=== PATIENT | female | born 1940 | race Caucasian/White ===

== ENCOUNTER 2024-10-25 14:49 | Outpatient (REF) | payer MEDICARE, MEDICAID, SELFPAY ==
--- NOTE | 2024-10-25 16:57 | MHC.AU.MED ---
Medical Clearance for Hearing Instrumentation Date: 10/25/24 Patient Name: Elinor Reynoso Date of : 1940 Primary Care Provider: Elinor Brooks MD We have seen your patient on 10/25/24 and have determined that they are a candidate for amplification (See accompanying report). Specifically, they would benefit from: Hearing aid use in both ears There is a statute that addresses Medical Evaluation Requirements prior to fitting a patient with a hearing aid. According to [place] statute 265 CMR:6.03(1), (a) General. Except as provided in 265 CMR 6.03(1)(b), a unemployment insurance hearing officer shall not sell a hearing aid unless the prospective user has presented to the unemployment insurance hearing officer a written statement signed by a licensed physician that states that the patient's hearing loss has been medically evaluated and the patient may be considered a candidate for a hearing aid. The medical evaluation must have taken place within the preceding six months. Please note: Due to the [place] Statute referenced above, we cannot accept a signature other than that of a licensed physician. BALL WARPER TENDER and PA signatures cannot be accepted. I am in agreement with the above recommendation. There is no medical contraindication for hearing instrumentation. Physician Signature Date Physician Name (Printed)
--- NOTE | 2024-10-30 08:52 | MHC.AU.HA1 ---
Hearing Aid Evaluation Date of Visit: 10/25/24 Historical Information: Description of Hearing: Mild sloping to severe sensorineural hearing loss, bilaterally Current personal amplification information: Phonak Audeo Y25-Islzna fit in October 2017 Summary: Accompanied by daughter, Carmen, who interpreted in Icelandic. Has not worn HAs in a long time, reportedly constantly fell off ears and never fully acclimated to sound quality. Elinor not convinced she needs HAs, noting she only struggles to hear some times. However, daughter reported significant communication difficulties. Elinor initially interested in custom HAs but ultimately opted to trial rechargeable RITEs. Will start with dome but discussed possibility of adding custom EM, if needed. Hearing Aid Prescription: Based on the individual?s shared listening needs, communication environments, dexterity, desire for connectivity, and personal preferences, the following prescription for amplification has been made: Right ear: Make, Model, Color: Phonak Audeo I50-R Color: Silver Stephens Battery Size: Rechargeable Mold Carpenter/Slim Tube: 1M Type of Earmold/Dome/CShell/SlimTip: Small power dome Left ear: Left ear prescription to be same as Right Hearing Aid above: Make, Model, Color: Phonak Audeo I50-R Color: Silver Stephens Battery Size: Rechargeable Mold Carpenter/Slim Tube: 1M Type of Earmold/Dome/CShell/SlimTip: Small power dome Accessories/Assistive Technology: Lithographic Retoucher Apprentice Plan of Care: Patient wishes to purchase hearing aids as prescribed Action Taken/Action Needed: Medical Clearance to be requested from PCP/ENT. Hearing Instrument Fitting to be scheduled when materials arrive Primary Diagnosis: H90.3 Bilateral Sensorineural Hearing Loss Signature: Provider: Khloe Martines, [facility]
== END 2024-10-25 14:50 | disposition home or self-care (01) ==
LOC: HO.SH 14:49
PROVIDERS: Visit Provider Internal Medicine
DX: Z01.118 Encounter for examination of ears and hearing with other abnormal findings (principal); Z46.1 Encounter for fitting and adjustment of hearing aid; H90.3 Sensorineural hearing loss, bilateral
CPT/HCPCS: 92557; 92591

== ENCOUNTER 2024-11-16 14:01 | Outpatient (REF) | payer MEDICARE, MEDICAID, SELFPAY | END 2024-11-16 14:02 | disposition home or self-care (01) | LOC: HO.HMGCX 14:01 | PROVIDERS: PCP General Practice; Visit Provider General Practice | DX: N83.202 Unspecified ovarian cyst, left side (principal) | CPT/HCPCS: 76830; 76856 ==

== ENCOUNTER → 2024-11-16 14:02 | Outpatient (BNV) | payer MEDICARE, MEDICAID, SELFPAY | PROVIDERS: PCP General Practice; Visit Provider Radiology Diagnostic Radiology | DX: N83.202 Unspecified ovarian cyst, left side (principal) | CPT/HCPCS: 76830; 76856 ==

== ENCOUNTER 2024-11-29 14:44 | Outpatient (REF) | payer MEDICARE, MEDICAID, SELFPAY ==
--- OUTSIDE RECORDS SUMMARY | 2024-11-29 15:51 | XMS_ITS | Clinical Summary ---
Author Organization [employer] Address [address] [facility] [address] [place] [address] Care Team Providers Care Blueprint Assembler Name Role Phone Mabel Black MD Primary Care Provider Allergies Active Allergy Reactions Criticality Noted Date Comments Penicillin G Unknown 10/04/2024 Medications alendronate (Fosamax) 70 MG tabletIndications:A ge-related osteoporosis without current pathological fracture Take 1 tablet (70 mg) by mouth every 7 (seven) days. Take in the morning with a full glass of water, on an empty stomach, and do not take anything else by mouth or lie down for the next 30 min. 12 tablet 3 4 10/04/20 25 Active rosuvastatin (Crestor) 20 MG tabletIndications:M ixed hyperlipidemia Take 1 tablet (20 mg) by mouth Once per day. 90 tablet 3 4 10/04/20 25 Active valsartan (Diovan) 320 MG tabletIndications:P rimary hypertension Take 1 tablet (320 mg) by mouth Once per day. 90 tablet 3 4 10/04/20 25 Active amLODIPine (Norvasc) 5 MG tabletIndications:P rimary hypertension Take 1 tablet (5 mg) by mouth Once per day. 90 tablet 3 4 10/04/20 25 Active levothyroxine (Synthroid) 50 MCG tabletIndications:A cquired hypothyroidism Take 1 tablet (50 mcg) by mouth before breakfast. 90 tablet 3 4 10/04/20 25 Active aspirin 81 MG chewable tabletIndications:P rimary hypertension Chew 1 tablet (81 mg) Once per day. 90 tablet 3 4 10/04/20 25 Active Blood Pressure Monitoring (Blood Pressure Cuff) [facility] 1 each Once per day. 1 each Active Active Problems Problem Noted Date Diagnosed Date Dystrophic nail 11/19/2024 Assessment & Plan (11/19/2024 8:40 AM EST): Refer to podiatry Imbalance 10/12/2024 Assessment & Plan (10/12/2024 1:34 PM EST): Drink plenty of fluids and rest Do not do sudden movements, change positions gradually Meclizine PRN Decreased hearing of both ears 10/12/2024 Neck pain 10/12/2024 Primary hypertension 10/04/2024 Assessment & Plan (11/19/2024 8:41 AM EST): Maintenance: Amlodipine 5mg, Valsartan 320mg NOT at goal today, BP cuff ordered to [facility], to check daily ad f/u with nurse visit in 4 weeks, me in 4 months IF BP not at goal <140/90, increase Amlodipine to 10mg BMP: No results found for: CREATININE Lipid Panel: DUE ASCVD Risk: Calculate pending updated labs EKG: Obtain baseline at f/u - Aerobic exercise to reduce BP. Initial goal of 30 min walk 3-5x/week. Increase as tolerated. - low-sodium diet (goal: <2g/day) and heart healthy diet such as DASH to reduce BP and prevent ASCVD. - Home BP monitoring 1-2 x day with goal of <140/90. - Seek immediate medical attention for chest pain, palpitations, SOB, syncope, or sudden changes in mental status. 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 f ailure with decreased ejection fraction 10/04/2024 Left ovarian cyst 10/04/2024 Encounters Date Type Department Care Team Description 11/14/2024 3:15 PM EST Office Visit [address] [address] Mabel Black MD Primary hypertension (Primary Dx); Mixed hyperlipidemia; Lymphoma of right inguinal region (CMS/HCC); ACC/AHA stage C left heart failure with decreased ejection fraction (CMS/HCC); Acquired hypothyroidism; Left ovarian cyst; Age-related osteoporosis without current pathological fracture; Malignant neoplasm of right female breast, unspecified estrogen receptor status, unspecified site of breast (CMS/HCC); Decreased hearing of both ears; Imbalance; Dystrophic nail 11/14/2024 Travel 11/08/[address] [address] Swati Armenta [place] Referral 11/07/2024 Orders Only [address] [address] Mabel Black MD Left ovarian cyst (Primary Dx) 10/15/[address] [address] Mabel Black MD 10/12/2024 1:00 PM EST Office Visit [facility] [address] [place] [phone] Elinor Montero MD Imbalance (Primary Dx); Decreased hearing of both ears; Neck pain; Other computer terminal operator (current) drug therapy; Weakness 10/12/2024 Telephone [facility] [address] [place] [phone] Betzaida Bell RN Nurse Triage (/ ) 10/12/[address] [address] Mabel Black MD Nurse Triage 10/04/[address] [address] Mabel Black MD telephone call 10/02/2024 9:45 AM EST Office Visit [address] [address] Mabel Black MD Primary hypertension (Primary Dx); Mixed hyperlipidemia; Acquired hypothyroidism; Lymphoma of right inguinal region (CMS/HCC); Malignant neoplasm of right female breast, unspecified estrogen receptor status, unspecified site of breast (CMS/HCC); Age-related osteoporosis without current pathological fracture; Diverticulitis of both small and large intestine without perforation or abscess without bleeding; Nonexudative age-related macular degeneration, unspecified laterality, unspecified stage; ACC/AHA stage C left heart failure with decreased ejection fraction (CMS/HCC); Left ovarian cyst 10/02/2024 Travel 09/21/2024 Patient Outreach [facility] [address] [place], [place] [phone] Mabel Black MD Pre-visit Planning ((Unable to complete PVP screening will complete in office) 09/11/2024 Telephone [facility] [address] [place] [address] Mabel Black MD Appointment Request from Last 3 Months Immunizations Name Administration Dates Next Due Influenza injectable quadrivalent preservative f ree 07/29/2017 Influenza, High Dose Seasonal, Preservative Free 08/17/2024 Social History Tobacco Use Types Packs/Day Years Used Date Smoking Tobacco: Never Smokeless Tobacco: Never Tobacco Cessation:Counseling Given: Not Answered Alcohol Use Standard Drinks/Week Comments Not Currently 0 (1 standard drink = 0.6 oz pur e alcohol) Alcohol Answer Date Recorded How often do you have a drink containing alcohol ? 0 11/19/2024 How many drinks containing a lcohol do you have on a typical day when you are drinking? 0 11/19/2024 How often do you have six or more drinks on one occasion? 0 11/19/2024 Housing Stability Answer Date Recorded What is your housing situation today? I have cheryl das 10/02/[address] you li ve. Do you have problems with any of the following? None of the above 10/02/2024 Food Insecurity Answer Date Recorded Within the past 12 months, y ou worried that your food would run out before you got money to buy more: Never True 10/02/2024 Within the past 12 months,th e food you bought just didn't last and you didn't have enough money to get more: Never True Transportation Answer Date Recorded In the past 12 months, has l ack of transportation kept you from medical appts, meetings, work or from getting things needed for daily living? No 10/02/2024 Intimate Partner Violence Answer Date R ecorded Within the last year, have y ou been afraid of your partner or ex-partner? 2 11/19/2024 Within the last year, have y ou been humiliated or emotionally abused in other ways by your partner or ex-partner? 2 Within the last year, have y ou been kicked, hit, slapped, or otherwise physically hurt by your partner or ex-partner? 2 11/19/2024 Within the last year, have y ou been raped or forced to have any kind of sexual activity by your partner or ex-partner? 2 11/19/2024 Utilities Answer Date Recorded In the past 12 months, has t he [employer], gas, oil or water company threatened to shut off services in your home? No 10/02/2024 Depression Answer Date Recorded Patient Health Questionnaire-2 Score 0 10/02/2024 Internet Access Answer Date Recorded Internet Access Q1 Yes 10/02/2024 Internet Access Q2 Not on file 10/02/2024 Comments Unknown Sex and Gender Information Value Date Recorded Sex Assigned at Female 08/09/2022 10:32 AM EDT Legal Sex Female 10:32 AM EDT Gender Identity Female 09/25/2024 1:37 PM EST Sexual Orientation Don't know 09/25/2024 1: 38 PM EST Last Filed Vital Signs Vital Sign Reading Time Taken Comments Blood Pressure 157/68 11/14/2024 3:34 PM EST Pulse 72 11/14/2024 3:34 PM EST Temperature 36.5 ??C (97.7 ??F) 11/14/2024 3:34 PM ES T Respiratory Rate 15 11/14/2024 3:34 PM EST Oxygen Saturation 100% 10/12/2024 11:50 AM EST Inhaled Oxygen Concentration - - Weight 51.9 kg (114 lb 6.4 oz) 11/14/2024 3:34 P M EST Height 147.3 cm (4' 10 ) 11/14/2024 3:34 PM EST Body Mass Index 23.91 11/14/2024 3:34 PM EST Plan of Treatment Health Maintenance Due Date Last Done Comments Lipid Panel 1940 COVID-19 Vaccine (#1) 01/18/1945 DTaP/Tdap/Td Vaccines (1 - Tdap) 01/18/1959 Pneumococcal Vaccine: 50+ Years (1 of 2 - PCV) 01/18/1959 Zoster Vaccines (1 of 2) 01/18/1959 RSV Patients and Patients Aged 60 years or older (1 - 1-dose 75+ series) 01/18/2015 Depression Screening 10/02/2025 10/02/2024, 10/02/2024 SDOH Screening 10/02/2025 10/02/2024 Diabetes: Hemoglobin A1C 10/12/2025 10/12/2024 Tobacco Screening 11/14/2025 11/14/2024 Alcohol/Substance Use Screening 11/19/2025 11/19/2024 Influenza Vaccine Completed 08/17/2024, 07/29/2017 HIB Vaccines Aged Out No longer eligi ble based on patient's age to complete this topic HPV Vaccines Aged Out No longer eligi ble based on patient's age to complete this topic Hepatitis A Vaccines Aged Out No long er eligible based on patient's age to complete this topic Hepatitis B Vaccines Aged Out No long er eligible based on patient's age to complete this topic IPV Vaccines Aged Out No longer eligi ble based on patient's age to complete this topic Meningococcal Vaccine Aged Out No ricky vitaly eligible based on patient's age to complete this topic RSV under 20 months Aged Out No longe r eligible based on patient's age to complete this topic Rotavirus Vaccines Aged Out No longer eligible based on patient's age to complete this topic Procedures Procedure Name Priority Date/Time Associated Diagnosis Comments US PELVIS TRANSVAGINAL Routine 11/16/2024 2:10 PM EST Left ovarian cyst ECG 12-LEAD Routine 10/25/2024 10:06 AM EST Imbalance Weakness ECG 12-LEAD Routine 10/25/2024 10:06 AM EST Imbalance POCT GLUCOSE Routine 10/12/2024 1:33 PM EST Imbalance Weakness POCT GLYCATED HEMOGLOBIN, TOTAL Routine 10/12/2024 1:33 PM EST Imbalance 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 [facility] ?[address] [facility] . ? [place] [address] ? Ultrasound Report ? Signed ? Patient: Elinor Reynoso ?MR#: [id number] ?? 9 ? : 1940 ?Acct:[id number] ? Age/Sex: 84 / F ?ADM Date: 11/16/24 ? Loc: HO.[facility]X ? Attending Dr: Mabel Black MD ? Ordering Physician: Mabel Black ?? Date of Service: 11/16/24 ?? Procedure(s): US pelvic and transvaginal ?? Accession Number(s): [id number] ? cc: Mabel Black ? EXAMINATION: ??US PELVIS TRANSABDOMINAL AND TRANSVAGINAL ? HISTORY: pelvic pain ? COMPARISON: Correlation is made with a CT of the pelvis dated 718. ? TECHNIQUE: ? Transabdominal and endovaginal real-time 2D lee-scale ultrasound was ?? performed. ? FINDINGS: ? Uterus: The patient is status post hysterectomy. ? Right ovary: ??The right ovary is surgically absent. ? Left ovary: ?? The left ovary measures 3.0 x 2.3 x 2.7 cm. ??There is a ?? 2.6 x 2.0 x 2.4 cm ovarian cyst and a smaller subcentimeter daughter ?? cyst. This is similar in size to the prior CT scan. ? Pelvic fluid: none. ? US/US pelvic and transvaginal ?? IMPRESSION: ?? Status post hysterectomy and right oophorectomy. 2.6 x 2.0 x 2.4 cm ?? left ovarian cyst, similar in size to the prior CT of 05/16/2018. ? Electronically signed by: ??Carrillo Latif MD ??11/16/2024 02:47 PM EST ?? RP ? Dictated By: ?Carrillo Latif MD ? Signed By: ?<Electronically signed by Carrillo Latif MD in OV> ?11/16/247 ? DD/ 1410 ? TD/TT: 11/16/24 1434 ? Tracing Lathe Set Up Operator: ? Procedure Note Donotjoseinterpreter, Image - 11/16/2024 [facility] [address] [place] [address] [place] [address] Ultrasound Report Signed Patient: Elinor Reynoso [employer]#: [id number] 9 : 1940Acct:[id number] Age/Sex: 84 / FADM Date: 11/16/24 Loc: .[facility] Attending Dr: Mabel Black MD Ordering Physician: Mabel Black Date of Service: 11/16/24 Procedure(s): US pelvic and transvaginal Accession Number(s): [id number] cc: Mabel Black EXAMINATION: US PELVIS TRANSABDOMINAL AND TRANSVAGINAL HISTORY: pelvic pain COMPARISON: Correlation is made with a CT of the pelvis dated . TECHNIQUE: Transabdominal and endovaginal real-time 2D lee-scale ultrasound was performed. FINDINGS: Uterus: The patient is status post hysterectomy. Right ovary: The right ovary is surgically absent. Left ovary: The left ovary measures 3.0 x 2.3 x 2.7 cm. There is a 2.6 x 2.0 x 2.4 cm ovarian cyst and a smaller subcentimeter daughter cyst. This is similar in size to the prior CT scan. Pelvic fluid: none. US/US pelvic and transvaginal IMPRESSION: Status post hysterectomy and right oophorectomy. 2.6 x 2.0 x 2.4 cm left ovarian cyst, similar in size to the prior CT of 05/16/2018. Electronically signed by: Carrillo Latif MD 11/16/2024 02:47 PM EST Dictated By: Carrillo Latif MD Signed By: <Electronically signed by Carrillo Latif MD in OV> 11/16/24 1447 DD/ 1410 TD/TT: 11/16/24 1434 Tracing Lathe Set Up Operator: Mabel Black MD IMG US PROCEDURES Final Result * ECG 12 lead (10/25/2024 10:06 AM EST) Only the most recent of2 resultswithin the time period is included. Result [facility] Elinor Brooks MD ECG ORDERABLES Final Result * POCT A1C (10/12/2024 1:33 PM EST) Hemoglobin A1C 5.8 4.0 - 6.0 % Swab 10/12/2024 1:33 PM EST Result [facility] Elinor Brooks MD POINT OF CARE TEST EN TER/EDIT ORDERABLES Final Result * POCT glucose manually resulted (10/12/2024 1:33 PM EST) Glucose Blood, POC 93 60 - 200 mg/dL Blood Capillary blood specimen / Unknown 10/12/2024 1:33 PM EST Result [facility] Elinor Brooks MD POINT OF CARE TEST EN TER/EDIT ORDERABLES Final Result * POCT Hemoglobin (10/12/2024 1:33 PM EST) Hemoglobin 13.1 12.0 - 15.0 Blood 10/12/2024 1:33 PM EST Result [facility] Elinor Brooks MD POINT OF CARE TEST EN TER/EDIT ORDERABLES Final Result from Last 3 Months Insurance [facility] STANDARD [place] [address] [place] [id number] Care Teams Blueprint Assembler Relationship Specialty Start Date End Date Mabel Black MD [address] [facility] [place] [address] PCP - General Family Medicine 10/02/24
--- OUTSIDE RECORDS SUMMARY | 2024-11-29 15:51 | XMS_ITS | Encounter Summary ---
Author Organization [employer] Address [address] [facility] [address] [address] [place] [address] Care Team Providers Care Examination Proctor Name Role Phone Mabel Black MD Primary Care Provider [phone] Reason for Visit * Reason Onset Date Comments Referral 11/08/2024 Encounter Details Date Type Department Care Team ([facility] st Contact Info) Description 11/08/2024 Telephone [facility] [address] [facility] [place] [address] Swati Armenta MA Referral Social History Tobacco Use Types Packs/Day Years Used Date Smoking Tobacco: Never Smokeless Tobacco: Never Alcohol Use Standard Drinks/Week Comments Not Currently 0 (1 standard drink = 0.6 oz pur e alcohol) Housing Stability Answer Date Recorded What is [...] things needed for daily living? No 10/02/2024 Utilities Answer Date Recorded In the past 12 months, has t he electric, gas, oil or water company threatened to [...] Don't know 09/25/2024 1: 38 PM EST documented as of this encounter Miscellaneous Notes * Telephone Encounter - Swati Armenta [place] - 11/08/2024 4:43 PM EST T/c placed to notify pt US was ordered and [facility] will reach out to schedule appt. documented in this encounter Plan of Treatment Not on file documented as of this encounter Visit Diagnoses Not on filedocumented in this encounter Care Teams Examination Proctor Relationship Specialty Start Date End Date Mabel Black MD [address] [place] [id number] PCP - General Family Medicine 10/02/24 documented as of this encounter
--- OUTSIDE RECORDS SUMMARY | 2024-11-29 15:51 | XMS_ITS | Encounter Summary ---
Author Organization [employer] Address [address] [place] [address] Care Team Providers Care Hot Car Operator Name Role Phone Mabel Black MD Primary Care Provider [phone] Encounter Details Date Type Department Care Team (Latest Contact Info) Description 11/14/2024 Travel Social History Tobacco Use Types Packs/Day Years [...] PM EST documented as of this encounter Plan of Treatment Not on file documented as of this encounter Visit Diagnoses Not on filedocumented in this encounter Care Teams Hot Car Operator Relationship Specialty Start Date End Date Mabel Black MD [address] [place] [id number] PCP - General Family Medicine 10/02/24 documented as of this encounter
--- OUTSIDE RECORDS SUMMARY | 2024-11-29 15:51 | XMS_ITS | Encounter Summary ---
Author Organization [employer] Address [address] [facility] [address] [place] [address] Care Team Providers Care Lean Specialist Name Role Phone Mabel Black MD Primary Care Provider [phone] Reason for Referral * Consultation (Routine) - Closed Specialty Diagnoses / Procedures Referred By Isrrael rodas Referred To Contact Podiatry Diagnoses Dystrophic nail Mabel Black MD [address] [place] [address] Phone: tel: fax: [facility] [address] [place] [address] Phone: tel: fax: Referral ID Status Reason Start Date Expiration Date V isits Requested Visits Authorized [id number] Closed Specialty Services Required 11/19/2024 11/19/2025 1 1 Reason for Visit * Reason Comments Follow-up Encounter Details Date Type Department Care Team (Late st Contact Info) Description 11/14/2024 3:15 PM EST Office Visit [facility] [address] [facility] [place], [place] [phone] Mabel Black MD [address] [place], [place] [phone] Primary hypertension (Primary Dx); Mixed hyperlipidemia; Lymphoma of right inguinal region (CMS/HCC); ACC/AHA stage C left heart failure with decreased ejection fraction (CMS/HCC); Acquired hypothyroidism; Left ovarian cyst; Age-related osteoporosis without current pathological fracture; Malignant neoplasm of right female breast, unspecified estrogen receptor status, unspecified site of breast (CMS/HCC); Decreased hearing of both ears; Imbalance; Dystrophic nail Social History Tobacco Use Types Packs/Day Years [...] PM EST documented as of this encounter Last Filed Vital Signs Vital Sign Reading Time Taken Comments Blood Pressure 157/68 11/14/2024 3:34 PM EST Pulse 72 11/14/2024 3:34 PM EST Temperature 36.5 ??C (97.7 ??F) 11/14/2024 3:34 PM ES T Respiratory Rate 15 11/14/2024 3:34 PM EST Oxygen Saturation - - Inhaled Oxygen Concentration - - Weight 51.9 kg (114 lb 6.4 oz) 11/14/2024 3:34 P M EST Height 147.3 cm (4' 10 ) 11/14/2024 3:34 PM EST Body Mass Index 23.91 11/14/2024 3:34 PM EST documented in this encounter Progress Notes * Mabel Black MD - 11/14/2024 3:15 PM EST SUBJECTIVE: Elinor Reynoso is a 84 y.o. year old female who presents for chronic disease management. Denies recent illness, ER visit, or hospitalization. Acute Concerns: 10/30/24 trial new hearing aids, audiology eval Interim Updates: Went back to live in [place] in 2018, was diagnosed with R sided breast cancer there. Also growing increasingly fatigued and had a fall in June 2024 where she hit her head, prompting her move back [facility]. She is here, living with her daughter Swati. Undergoing application for Swati to become her TECHNICAL BUSINESS ANALYST. Current concerns: Breast cancer and lymphoma [facility] is requesting medical records from [place], her son is working on obtaining them Disequilibrium Has ENT appointment March 2025 Needs DME script for shower chair and walker with seat L ovarian cyst Referral to gynecology for L ovarian cyst followup FINDINGS: Uterus: The patient is status post [...] in size to the prior CT of 05/16/2018 HTN Not at goal on Amlodipine 5mg and Valsartan 320mg Need BP cuff, ordered to [facility] On ASA 81mg daily Crestor 20g daily Due for lipid labs Hypothyroidism Synthroid 50mcg Need to check TSH Osteoporosis Fosamax 70mg weekly since Health maintenance Imms- declines today Patient Active Problem List Diagnosis Primary hypertension Mixed hyperlipidemia Acquired hypothyroidism Lymphoma of right inguinal region (CMS/HCC) Malignant neoplasm of right female breast (CMS/HCC) Age-related osteoporosis without current pathological fracture Diverticulitis of both small and large intestine without perforation or abscess Nonexudative age-related macular degeneration ACC/AHA stage C left heart failure with decreased ejection fraction (CMS/HCC) Left ovarian cyst Imbalance Decreased hearing of both ears Neck pain Dystrophic nail Past Surgical History: Procedure Laterality Date LYMPH NODE BIOPSY Right 10/10/2023 No family history on file. Social History Social History Narrative Not on file Review of Systems Constitutional: Negative. Respiratory: Negative. Cardiovascular: Negative. Gastrointestinal: Negative. Musculoskeletal: Positive for arthralgias and neck pain. Neurological: Positive for dizziness. Sense of disequlibrium OBJECTIVE: Vitals: 11/14/24 1534 BP: (!) 157/68 BP Location: Right arm Patient Position: Sitting BP Cuff Size: Adult Pulse: 72 Resp: 15 Temp: 97.7 ??F (36.5 ??C) TempSrc: Temporal Weight: 114 lb 6.4 oz (51.9 kg) Height: 4' 10 (1.473 m) Physical Exam Vitals and nursing note reviewed. Constitutional: Appearance: Normal appearance. HENT: Head: Normocephalic and atraumatic. Cardiovascular: Rate and Rhythm: Normal rate and regular rhythm. Pulses: Normal pulses. Heart sounds: Normal heart sounds. Pulmonary: Effort: Pulmonary effort is normal. Breath sounds: Normal breath sounds. Skin: General: Skin is warm and dry. Neurological: General: No focal deficit present. Mental Status: She is alert and oriented to person, place, and time. Psychiatric: Mood and Affect: Mood normal. Behavior: Behavior normal. ASSESSMENT/PLAN Problem List Items Addressed This Visit Primary hypertension - Primary Current Assessment & Plan Maintenance: Amlodipine 5mg, Valsartan 320mg NOT at goal today, BP cuff ordered to [facility], to check daily ad f/u with nurse visit in 4 weeks, me in4 months IF BP not at goal <140/90, [...] pain, palpitations, SOB, syncope, or sudden changes inmental status. - Do not change or discontinue current prescriptions without first consulting health care provider Relevant Orders Lipid Panel, Standard Mixed hyperlipidemia Relevant Orders Lipid Panel, Standard Acquired hypothyroidism Relevant Orders TSH W/Reflex to FT4 Lymphoma of right inguinal region (CMS/HCC) Malignant neoplasm of right female breast (CMS/HCC) Age-related osteoporosis without current pathological fracture ACC/AHA stage C left heart failure with decreased ejection fraction (CMS/HCC) Left ovarian cyst Imbalance Decreased hearing of both ears Dystrophic nail Current Assessment & Plan Refer to podiatry Relevant Orders Referral to Podiatry Follow Up: 4 months or sooner prn Allergies Allergen Reactions Penicillin G Unknown Current Outpatient Medications: alendronate (Fosamax) 70 MG tablet, Take 1 tablet (70 mg) by mouth every 7 (seven) days. Take in the morning with a full glass of water, on an empty stomach, and do not take anything else by mouth orlie down for the next 30 min., Disp: 12 tablet, Rfl: 3 amLODIPine (Norvasc) 5 MG tablet, Take 1 tablet (5 mg) by mouth Once per day., Disp: 90 tablet, Rfl: 3 aspirin 81 MG chewable tablet, Chew 1 tablet (81 mg) Once per day., Disp: 90 tablet, Rfl: 3 Blood Pressure Monitoring (Blood Pressure Cuff) misc, 1 each Once per day., Disp: 1 each, Rfl: 0 levothyroxine (Synthroid) 50 MCG tablet, Take 1 tablet (50 mcg) by mouth before breakfast., Disp: 90 tablet, Rfl: 3 rosuvastatin (Crestor) 20 MG tablet, Take 1 tablet (20 mg) by mouth Once per day., Disp: 90 tablet,Rfl: 3 valsartan (Diovan) 320 MG tablet, Take 1 tablet (320 mg) by mouth Once per day., Disp: 90 tablet, Rfl: 3 Russian Translation: Provided by [facility] staff member LARY Longoria documented in this encounter Miscellaneous Notes * Assessment & Plan Note - Mabel Black MD - 11/19/2024 8:40 AM ESTAssociated Problem(s): Dystrophic nail Refer to podiatry * Assessment & Plan Note - Mabel Black MD - 11/19/2024 8:40 AM ESTAssociated Problem(s): Primary hypertension Maintenance: Amlodipine 5mg, Valsartan 320mg NOT at goal today, BP cuff ordered to [facility], to check daily ad f/u with nurse visit in 4 weeks, me in4 months IF BP not at goal <140/90, [...] pain, palpitations, SOB, syncope, or sudden changes inmental status. - Do not change or discontinue current prescriptions without first consulting health care provider documented in this encounter Plan of Treatment Scheduled Orders Name Type Priority Associated Diagnoses Orde r Schedule Lipid Panel, Standard Lab Routine Mixed hyperlipidemia Primary hypertension Expected: 11/19/2024 (Approximate), Expires: 11/19/2025 TSH W/Reflex to FT4 Lab Routine Acquired hypothyroidism Expected: 11/19/2024 (Approximate), Expires: 11/19/2025 Scheduled Referrals Name Type Priority Associated Diagnoses Orde r Schedule Referral to Podiatry Outpatient Referral Routine Dystrophic nail Expected: 11/19/2024 (Approximate), Expires: 11/19/2025 documented as of this encounter Visit Diagnoses Diagnosis Primary hypertension- Primary Unspecified essential hypertension Mixed hyperlipidemia Lymphoma of right inguinal region (CMS/HCC) ACC/AHA stage C left heart failure with decreased ejection fraction (CMS/HCC) Acquired hypothyroidism Unspecified hypothyroidism Left ovarian cyst Other and unspecified ovarian cyst Age-related osteoporosis without current pathological fracture Malignant neoplasm of right female breast, unspecified estrogen receptor status, unspecified site of breast (CMS/HCC) Decreased hearing of both ears Imbalance Abnormality of gait Dystrophic nail Other specified disease of nail documented in this encounter Care Teams Lean Specialist Relationship Specialty Start Date End Date Mabel Black MD [address] [place] [id number] PCP - General Family Medicine 10/02/24 documented as of this encounter
--- OUTSIDE RECORDS SUMMARY | 2024-11-29 15:51 | XMS_ITS | Encounter Summary ---
Author Organization [facility] Address [address] [facility] [address] [place] [address] Care Team Providers Care Distribution Designer Name Role Phone Mabel Black MD Primary Care Provider [phone] Reason for Referral * Imaging (Routine) - Closed Specialty Diagnoses / Procedures Referred By Isrrael rodas Referred To Contact Radiology Diagnoses Left ovarian cyst Procedures US Pelvis Transvaginal Mabel Black MD [address] [place] [address] Phone: tel: fax: [address] Phone: tel: fax: Referral ID Status Reason Start Date Expiration Date Visits Re quested Visits Authorized [id number] Closed 11/07/2024 11/07/2025 1 1 * Imaging (Routine) - Closed Specialty Diagnoses / Procedures Referred By Isrrael rodas Referred To Contact Radiology Diagnoses Left ovarian cyst Procedures Us Pelvis complete Mabel Black MD [address] [place] [address] Phone: tel: fax: [address] Phone: tel: fax: Referral ID Status Reason Start Date Expiration Date Visits Re quested Visits Authorized [id number] Closed 11/07/2024 11/07/2025 1 1 Encounter Details Date Type Department Care Team (Late st Contact Info) Description 11/07/2024 Orders Only [facility] [address] [place] [address] Mabel Black MD [address] [place] [address] Left ovarian cyst (Primary Dx) Social History Tobacco Use Types Packs/Day Years [...] as of this encounter Plan of Treatment Scheduled Orders Name Type Priority Associated Diagnoses Orde r Schedule Us Pelvis complete Imaging Routine Left ovarian cyst Expected: 11/07/2024, Expires: 11/07/2025 documented as of this encounter Procedures Procedure Name Priority Date/Time Associated Diagnosis Comments US PELVIS TRANSVAGINAL Routine 11/16/2024 2:10 PM EST Left ovarian cyst documented in this encounter Results * US Pelvis Transvaginal (11/16/2024 2:10 PM EST) Anatomical Region Laterality Modality Pelvis Ultrasound 11/16/2024 2:10 PM EST Narrative 11/16/2024 2:50 PM EST ? [facility] ?[address] ? [place] [address] ? Ultrasound Report ? Signed ? Patient: Elinor Reynoso ?MR#: [id number] ?? 9 ? : 1940 ?Acct:[id number] ? Age/Sex: 84 / F ?ADM Date: 11/16/24 ? Loc: HO.HMGCX ? Attending Dr: Mabel Black MD ? Ordering Physician: Mabel Black ?? Date of Service: 11/16/24 ?? Procedure(s): US pelvic and transvaginal ?? Accession Number(s): [id number] ? cc: Mabel Black ? EXAMINATION: ??US [...] DD/ 1410 ? TD/TT: 11/16/24 1434 ? Director Immunology: ? Procedure Note Donrisater, Image - 11/16/2024 [facility] [address] [place] [address] [place] [address] Ultrasound Report Signed Patient: Elinor Reynoso [employer]#: [id number] 9 : 1940Acct:[id number] Age/Sex: 84 / FADM Date: 11/16/24 Loc: HO.HMGCX Attending Dr: Mabel Black MD Ordering Physician: Mabel Black Date of Service: 11/16/24 Procedure(s): US pelvic and transvaginal Accession Number(s): [id number] cc: Mabel Black EXAMINATION: US PELVIS TRANSABDOMINAL AND TRANSVAGINAL HISTORY: pelvic pain COMPARISON: Correlation is made with a CT of the pelvis dated 718. TECHNIQUE: Transabdominal and endovaginal real-time 2D lee-scale [...] Carrillo Latif MD 11/16/2024 02:47 PM EST RP Dictated By: Carrillo Latif MD Signed By: <Electronically signed by Carrillo Latif MD in OV> 11/16/24 1447 DD/ 1410 TD/TT: 11/16/24 1434 Director Immunology: us Mabel Black MD IM US PROCEDURES Final Result documented in this encounter Visit Diagnoses Diagnosis Left ovarian cyst- Primary Other and unspecified ovarian cyst documented in this encounter Care Teams Distribution Designer Relationship Specialty Start Date End Date Mabel Black MD [address] [place] [id number] PCP - General Family Medicine 10/02/24 documented as of this encounter
--- NOTE | 2024-11-29 16:53 | MHC.AU.HA2 ---
Hearing Instrument Fitting- Adult- Binaural Date of Visit: 11/29/24 Hearing Instruments Dispensed: Right Ear: Make, Model, Color, Serial Number: Rj Rocha I50-R SN: [id number] Color: Silver Stephens Pollution Control Technician Repair Warranty: 11/29/2027 Pollution Control Technician Loss and Damage Warranty: 11/29/2027 [facility] Service Plan: 11/29/2025 Battery Size: Rechargeable Rail Layer/Slim Tube: 1M Earmold/Dome/CShell/SlimTip: Small power dome Type of Wax Guard: Cerustop Left Ear: Make, Model, Color, Serial Number: Rj Quesadao I50-R SN: [id number] Color: Silver Stephens Pollution Control Technician Repair Warranty: 11/29/2027 Pollution Control Technician Loss and Damage Warranty: 11/29/2027 [facility] Service Plan: 11/29/2025 Battery Size: Rechargeable Rail Layer/Slim Tube: 1M Earmold/Dome/CShell/SlimTip: Small power dome Type of Wax Guard: Cerustop Accessories/Assistive Technology: Phonak Household Worker LUCIO SN: [id number] Summary of Fitting: Ran electroacoustic measures in test box prior to appointment. Accompanied by daughter, Carmen. Ran feedback analyzer, which significantly cut out high frequencies regardless of dome size or style. Ran real ear measures, underfit due to limits of feedback curve. Impressions taken, bilaterally, without incident - sent to [employer] to order c-shells. Will use small power domes for now. Reportedly did not notice significant difference in hearing with HAs. Advised HAs will be reprogrammed once c-shells arrive; however, encouraged daily, consistent use with domes in meantime to acclimate to amplification. Discussed care, use, and rechargeability. Did not discuss cleaning or bluetooth, will do at follow up, which will be scheduled once c-shells arrive. Recommendations: Patient will be contacted once c-shells arrive. Diagnosis Code(s): Primary Diagnosis: H90.3 Bilateral Sensorineural Hearing Loss Signature: Provider: Khloe Martines, [facility]
== END 2024-11-29 14:45 | disposition home or self-care (01) ==
LOC: HO.HAP 14:44
PROVIDERS: Visit Provider Internal Medicine
DX: Z46.1 Encounter for fitting and adjustment of hearing aid (principal); H90.3 Sensorineural hearing loss, bilateral
CPT/HCPCS: 92595; V5011; V5020; V5160; V5261

== ENCOUNTER 2025-01-02 10:56 | Outpatient (AMB) | payer MEDICARE, MEDICAID, SELFPAY ==
--- NOTE | 2025-01-02 11:04 | A.OFFVIS_ITS ---
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/ Mabel Vieyra/ heart failure/decreased ef Datapower Consultant Required: Yes Datapower Consultant Services: Datapower Consultant Present Datapower Consultant Name: narciso [id number] Accompanied by: Daughter Allergies Penicillins [PENICILLINS] Allergy (Unknown, Unverified 06/26/20 16:05) TONGUE SWELLING Sulfa (Sulfonamide Antibiotics) [SULFA (SULFONAMIDE ANTIBIOTICS)] Allergy (Unknown, Unverified 06/26/20 16:05) RASH/ITCHING Medication List - Last Reconciled 01/02/25 by Ambrosio Sánchez MD alendronate 70 mg PO QWEEK amlodipine 5 mg PO DAILY aspirin (Adult Low Dose Aspirin) 81 mg PO DAILY levothyroxine 50 mcg PO DAILY rosuvastatin 20 mg PO DAILY valsartan 320 mg PO DAILY vitamins A,C,Y-zusl-pgqwdv 4,296 mcg-226 mg-90 mg (PreserVision AREDS) 1 cap PO BID HPI Comments Details: Elinor is here for cardiac consultation. She has moved here from [place]. Per primary care notes, listed to have congestive heart failure/stage C with LV EF of 40%/history of valvular insufficiency. However, in the echocardiogram report she has brought with her, LVEF is 62%. Hence not clear if it actually implies recovered EF. Patient herself cannot recall any prior cardiac history. Denies any documented coronary disease or myocardial infarction. Hence unclear where the LVEF of 40% came from. At the current time, she denies any clear anginal-type symptoms or overt shortness of breath. She just get symptoms of nonspecific fatigue. Sometimes she notices right leg swelling. [facility] Medical History (Updated 01/02/25 @ 11:56 by Ambrosio Sánchez MD) Lymphoma Dyslipidemia Hypothyroidism Hypertension Surgical History (Updated 01/02/25 @ 11:54 by Ambrosio Sánchez MD) S/P lumpectomy, right breast H/O mastectomy Family History (Updated 01/02/25 @ 11:16 by Connie Armenta CMA) Mother HTN (hypertension) Social History (Updated 01/02/25 @ 11:17 by Connie Armenta CMA) Alcohol intake: former Patient Tobacco Use Status: Never used Tobacco Review of Systems Const Denies chills, Denies daytime sleepiness, Denies fatigue, Denies fever(s), Denies poor appetite, Denies snoring, Denies stops breathing during sleep, Denies weakness, Denies weight gain and Denies weight loss Eyes Denies loss of vision ENT Denies dizziness and Denies hearing loss Card Reports chest pain, Denies irregular heart rhythm, Denies claudication, Denies leg edema, Denies lightheadedness, Denies palpitations, Reports dyspnea, Reports dyspnea on exertion and Denies orthopnea Resp Denies cough, Denies excessive phlegm production, Reports dyspnea, Reports dyspnea on exertion, Denies snoring and Denies wheezing GI Denies abdominal pain, Denies hematochezia, Denies change in bowel habits, Denies nausea and Denies vomiting Denies urinary frequency and Denies dysuria Musc Denies arthralgias, Denies muscle weakness, Denies numbness and Denies other Skin/Breast Denies nail changes and Denies rash Neuro Denies Abnormal speech present, Denies dizziness, Denies loss of vision, Denies memory loss, Denies numbness and Denies weakness Psych Denies depression and Denies memory loss Endo Denies fatigue and Denies palpitations Herve/Lymph Denies easy bruising Aller/Immun Denies wheezing Physical Exam Vital Signs: Last Vital Signs Pulse 66 01/02/25 11:08 BP 90/60 01/02/25 11:08 BMI result Body Mass Index 24.7 Const General: comfortable and no acute distress Orientation/consciousness: patient oriented x3 HEENT Other: Unremarkable Head: Yes normal to inspection Neck Neck: Yes normal visual inspection Chest Chest palpation & inspection: normal inspection of the chest Resp Auscultation: clear to auscultation bilaterally Cardio Palpation: normal PMI Heart sounds: S1 normal heart sound present, S2 normal heart sound present, no gallops, Murmur heart sound present systolic II/ and at the right sternal border and no rubs GI Palpation (GI): Soft to palpation Back/Spine/Pelvis Other: unremarkable Skin General skin exam: no rashes or lesions noted Neuro General: patient oriented x3 Speech: No Abnormal speech present Extrem General: Yes normal to inspection Psych Mental Status: mental status grossly normal Office Procedures EKG Details: EKG with underlying sinus rhythm at 66/Min; no significant ST-T changes; [place] [id number], Complete Assessment & Plan Assessment & Plan (1) History of cardiomyopathy: Code(s): Z86.79 - Personal history of other diseases of the circulatory system Category: Medical Plan: In the echocardiogram report from 2022 in [place], LVEF is 62% with mild diastolic dysfunction. Aneurysmal interatrial septum. Mild aortic regurgitation. Tries to mild mitral regurgitation mild tricuspid regurgitation. PCP notes mentioned LVEF is 40% and hence not clear if it is an error versus recovered EF. We will get an echocardiogram for further evaluation. She does have an aortic sclerotic murmur on exam. Otherwise, further plan pending results on the above. (2) Primary hypertension: Code(s): I10 - Essential (primary) hypertension Category: Medical Plan: Listed to be on amlodipine, valsartan. Blood pressure on the lower side today. If it persists like this, may need to decrease dose. (3) Leg swelling: Code(s): M79.89 - Other specified soft tissue disorders Category: Medical Plan: Intermittent leg swelling. Prior venous ultrasound describes moderate venous insufficiency in the left posterior tibial vein. Can try feet elevation and compression stockings. Plan Discussed with family who came for appointment. Also discussed using public works technician. Orders: Orders CA echo transthoracic complete Today M79.89 - Other specified soft tissue disorders, Z86.79 - Personal history of other diseases of the circulatory system Coding Level of Care Code New Pt Level 3 (38893) Diagnoses History of cardiomyopathy Z86.79 Primary hypertension I10 Leg swelling M79.89 CPT Codes EKG - CPT: 25400-Tlsrmqyxrhwiwjspe, Complete ([id number])
[2025-01-02 11:08] VITALS: BP 90/60; PULSE 66; BMI 24.7
--- OUTSIDE RECORDS SUMMARY | 2025-01-02 13:06 | XMS_ITS | Clinical Summary ---
Author Organization [employer] Address 75 [facility] 7t [place] [address] Care Team Providers Care Aerospace Stress Engineer Name Role Phone Mabel Black MD Primary Care Provider [phone] Allergies Active Allergy Reactions Criticality Noted Date [...] Active Blood Pressure Monitoring (Blood Pressure Cuff) [facility] [employer] 1 each Once per day. [...] at goal today, BP cuff ordered to [facility], to check daily ad f/u with nurse [...] Encounters Date Type Department Care Team Description 12/07/[address] [address] Mabel Black MD Med Refill 12/07/2024 Orders Only [address] [address] Mabel Black MD Left ovarian cyst (Primary Dx) 12/05/[address] [address] Mabel Black MD Call Back Request 11/14/2024 3:15 PM EST Office Visit [address] [address] Mabel Black MD Primary hypertension (Primary Dx); [...] Imbalance; Dystrophic nail 11/14/2024 Travel 11/08/[address] [address] Swati Armenta [place] Referral 11/07/2024 Orders Only [address] [address] Mabel Black MD Left ovarian cyst (Primary Dx) 10/15/[address] [address] Mabel Black MD 10/12/2024 1:00 PM EST Office Visit [facility] [address] [place] [address] Elinor Montero MD Imbalance (Primary Dx); Decreased hearing of both ears; Neck pain; Other rn long term care (current) drug therapy; Weakness 10/12/2024 Telephone [facility] [address] [place] [address] Betzaida Bell RN Nurse Triage (/ ) 10/12/[address] [address] Mabel Black MD Nurse Triage 10/04/2024 Telephone [facility] [address] [place] [address] Mabel Black MD telephone call from Last 3 Months Immunizations Name Administration [...] 11/14/2024 3:34 PM EST Plan of Treatment Upcoming Encounters Date Type Department Care Team (Late st Contact Info) Description 03/20/2025 3:45 PM EDT Office Visit [facility] [address] [place] [address] Mabel Black MD [address] [place] [address] Health Maintenance Due Date Last Done Comments [...] Routine 10/12/2024 1:33 PM EST Imbalance Other rn long term care (current) drug therapy POCT HEMOGLOBIN Routine 10/12/2024 1:33 PM EST Imbalance from Last 3 Months Results * US Pelvis Transvaginal (11/16/2024 2:10 PM EST) Anatomical Region Laterality Modality Pelvis Ultrasound 11/16/2024 2:10 PM EST Narrative 11/16/2024 2:50 PM EST ? [facility] ?[address] ? [place] [address] ? Ultrasound Report ? Signed ? Patient: Edgardo,Elinor N ?MR#: [id number] ?? 9 ? : 1940 ?Acct:[id number] ? Age/Sex: 84 / F ?ADM Date: 11/16/24 ? Loc: HO.HMGCX ? Attending Dr: Mabel Black MD ? Ordering Physician: Mabel Black ?? Date of Service: 11/16/24 ?? Procedure(s): US pelvic and transvaginal ?? Accession Number(s): [id number] ? cc: Mabel Black ? EXAMINATION: ??US [...] signed by Carrillo Latif MD in OV> ?11/16/24 1447 ? DD/ 1410 ? TD/TT: 11/16/24 1434 ? Gunner'S Mate G: ? Procedure Note Donotuseinterpreter, Image - 11/16/2024 [facility] [place] [address] Ultrasound Report Signed Patient: Elinor Reynoso [facility]#: [id number] 9 : 1940Acct:[id number] Age/Sex: 84 / FADM Date: 11/16/24 Loc: HO.HMGCX Attending Dr: Mabel Black MD Ordering Physician: Mabel Black Date of Service: 11/16/24 Procedure(s): US pelvic and transvaginal Accession Number(s): [id number] cc: Mabel Black EXAMINATION: US PELVIS TRANSABDOMINAL AND TRANSVAGINAL HISTORY: pelvic pain COMPARISON: Correlation is made with a CT of the pelvis dated 71. TECHNIQUE: Transabdominal and endovaginal real-time 2D lee-scale [...] 11/16/24 1447 DD/ 1410 TD/TT: 11/16/24 1434 Gunner'S Mate G: Mabel Black MD IMG US PROCEDURES Final Result * ECG 12 lead (10/25/2024 10:06 AM EST) Only the most recent of2 resultswithin the time period is included. Result [facility] Elinor Brooks MD ECG ORDERABLES Final Result * POCT A1C (10/12/2024 1:33 PM EST) Hemoglobin A1C 5.8 4.0 - 6.0 % Swab 10/12/2024 1:33 PM EST Result [facility] Elinor Brooks MD POINT OF CARE TEST EN TER/EDIT ORDERABLES Final Result * POCT glucose manually resulted (10/12/2024 1:33 PM EST) Glucose Blood, POC 93 60 - 200 mg/dL Blood Capillary blood specimen / Unknown 10/12/2024 1:33 PM EST Result [facility] Elinor Brooks MD POINT OF CARE TEST EN TER/EDIT ORDERABLES Final Result * POCT Hemoglobin (10/12/2024 1:33 PM EST) Hemoglobin 13.1 12.0 - 15.0 Blood 10/12/2024 1:33 PM EST Result [facility] Elinor Brooks MD POINT OF CARE TEST EN TER/EDIT ORDERABLES Final Result from Last 3 Months Insurance [facility] MEDICARE Care Teams Aerospace Stress Engineer Relationship Specialty Start Date End Date Mabel Black MD [address] [place] [address] PCP - General Family Medicine 10/02/24
--- OUTSIDE RECORDS SUMMARY | 2025-01-02 13:06 | XMS_ITS | Encounter Summary ---
Author Organization [employer] Address 75 [facility] 7t [place] [address] Care Team Providers Care Agronomy Research Manager Name Role Phone Mabel Black MD Primary Care Provider [phone] Reason for Visit * Reason Onset Date Comments Med Refill 12/07/2024 Encounter Details Date Type Department Care Team ([facility] st Contact Info) Description 12/07/2024 Telephone [facility] [address] [place], [place] [phone] Mabel Black MD [address] [place], [place] [phone] Med Refill Social History Tobacco Use Types Packs/Day Years [...] encounter Miscellaneous Notes * Telephone Encounter - Omar Cox RN - 12/07/2024 3:56 PM EST TC placed to patient regarding below, spoke to daughter who was informed that medication is alreadyready at the pharmacy. Advised if patient needs refills to contact pharmacy and request refill as needed and they will contact us if they need a new RX, Daughter verbalized understanding and agrees with plan. * Telephone Encounter - Lydia Moran LPN - 12/07/2024 3:17 PM EST Medication requested has refills * Telephone Encounter - Cole Mclean - 12/07/2024 3:15 PM EST TC from pt requesting medication refill. Medications needing refill : alendronate (Fosamax) 70 MG tablet To be sent to: [facility]/pharmacy #[id number] [place] [address] documented in this encounter Plan of Treatment Upcoming Encounters Date Type Department Care Team (Late st Contact Info) Description 03/20/2025 3:45 PM EDT Office Visit [facility] [address] [place] [address] [phone] Mabel Black MD [address] [place] [address] [phone] documented as of this encounter Visit Diagnoses Not on filedocumented in this encounter Care Teams Agronomy Research Manager Relationship Specialty Start Date End Date Mabel Black MD [address] [place] [address] [phone] PCP - General Family Medicine 10/02/24 documented as of this encounter
--- OUTSIDE RECORDS SUMMARY | 2025-01-02 13:06 | XMS_ITS | Encounter Summary ---
Author Organization [employer] Address 75 [facility] 7t [place] [address] Care Team Providers Care Hosiery Operator Name Role Phone Mabel Black MD Primary Care Provider [phone] Reason for Visit * Reason Onset Date Comments Call Back Request 12/05/2024 Encounter Details Date Type Department Care Team ([facility] st Contact Info) Description 12/05/2024 Telephone [facility] [address] [place], [place] [phone] Mabel Black MD [address] [place], [place] [phone] Call Back Request Social History Tobacco Use Types Packs/Day Years [...] the past 12 months, has t he [employer], gas, oil or water company threatened to [...] encounter Miscellaneous Notes * Telephone Encounter - Shannon Carr RN - 12/07/2024 3:26 PM EST Telephone call to pt, spoke with pt's daughter who is on HIPAA form and confirmed her and pt's . Advised her that PCP placed gynecology referral today and it is pending review, to expect letter in the mail in the next 1-2 weeks with appt info and to expect call from that office to schedule appt. Pt's daughter verbalized understanding. She also asked about refill on alendronate med. Per separate encounter, pt has refills on file. Informed daughter of this, daughter said she tried to call [facility] but never got through. Pt's daughter verbalized understanding, no further questions. * Telephone Encounter - Cole Mclean - 12/07/2024 3:17 PM EST Tc from pt daughter returning call regarding prior message. Contact pt daughter at [phone] * Telephone Encounter - Deysi Franklin RN - 12/07/2024 12:32 PM EST TC placed to patient [phone] in regards to below message. Patient did not answer, RN left requesting CB to red team nurses. Patient/daughter to f/u PRN. If daughter returns call, please inform of Timber Estimator referral being placed * Telephone Encounter - Mikala Irving RN - 12/06/2024 9:11 AM EST TC placed to pt daughter regarding callback request. Pt daughter states the pt was referred to gynecology by the provider. Pt's daughter states the office requested an ultrasound which was completed.Pt daughter states they received a call from [facility]ne[facility] stating they could no longer be able tosee the pt and the referral would be sent back to . Pt daughter states when [facility] told her they could no longer see the patient, they stated a referral would need to be sent by PCP to [facility]. Pt daughter states she hasn't heard anything and was calling in regards to referral. Pt daughter also wanted PCP to be aware of right leg swelling. Pt daughter states both legs tend to swell, but only the pt right leg has swelling. Pt daughter states when the right leg was elevated, the swelling improved. Pt daughter states she has not seen the pt today, but the pt had the right leg swelling yesterday that was improved with elevation. Message forwarded to PCP for review. * Telephone Encounter - Alex Torre - 12/05/2024 4:26 PM EST Tc from Daughter requesting a callback as she has several questions to ask [place] or PCP [phone] documented in this encounter Plan of Treatment Upcoming Encounters Date Type Department Care Team (Late st Contact Info) Description 03/20/2025 3:45 PM EDT Office Visit [facility] [address] [place], [place] [phone] Mabel Black MD [address] [place] [address] documented as of this encounter Visit Diagnoses Not on filedocumented in this encounter Care Teams Hosiery Operator Relationship Specialty Start Date End Date Mabel Black MD [address] [place] [address] [phone] PCP - General Family Medicine 10/02/24 documented as of this encounter
--- OUTSIDE RECORDS SUMMARY | 2025-01-02 13:06 | XMS_ITS | Encounter Summary ---
Author Organization [employer] [facility] Address 75 [facility] 7t [place] [address] Care Team Providers Care Tree Climber Name Role Phone Mabel Black MD Primary Care Provider [phone] Reason for Referral * Imaging (Routine) - Closed Specialty Diagnoses / Procedures Referred By Isrrael rodas Referred To Contact Radiology Diagnoses Left ovarian cyst Procedures US Pelvis Transvaginal Mabel Black MD 230 [place] [address] Phone: tel: fax: [address] Phone: tel: fax: Referral ID Status Reason Start Date Expiration Date Visits Re quested Visits Authorized [id number] Closed 11/07/2024 11/07/2025 1 1 * Imaging (Routine) - Closed Specialty Diagnoses / Procedures Referred By Isrrael rodas Referred To Contact Radiology Diagnoses Left ovarian cyst Procedures Us Pelvis complete Mabel Black MD [address] [place] [address] Phone: tel: fax: [address] Phone: tel: fax: Referral ID Status Reason Start Date Expiration Date Visits Re quested Visits Authorized [id number] Closed 11/07/2024 11/07/2025 1 1 Encounter Details Date Type Department Care Team (Late st Contact Info) Description 11/07/2024 Orders Only [facility] [address] [place] [address] Mabel Black MD [address] [place] [address] Left ovarian cyst (Primary Dx) Social History [...] as of this encounter Plan of Treatment Upcoming Encounters Date Type Department Care Team ([facility] Contact Info) Description 03/20/2025 3:45 PM EDT Office Visit [facility] [address] [place] [address] Mabel Black MD 230 [place] [address] Scheduled Orders Name Type Priority Associated Diagnoses [...] EST ? [facility] ?[address] [facility] [address] ? [place] [address] ? Ultrasound Report ? Signed ? Patient: Elinor Reynoso ?MR#: [id number] ?? 9 ? : 1940 ?Acct:[id number] ? Age/Sex: 84 / F ?ADM Date: 11/16/24 ? Loc: HO.HMGCX ? Attending Dr: Mabel Black MD ? Ordering Physician: Mabel Black ?? Date of Service: 11/16/24 ?? Procedure(s): US pelvic and transvaginal ?? Accession Number(s): [id number] ? cc: Mabel Black ? EXAMINATION: ??US [...] signed by Carrillo Latif MD in OV> ?11/16/241446 ? DD/ 1410 ? TD/TT: 11/16/24 1434 ? Mixing Pan Tender: ? Procedure Note Donjapsal, Image - 11/16/2024 [facility] [address] [place] [address] [place] [address] Ultrasound Report Signed Patient: Elinor Reynoso [facility]#: [id number] 9 : 1940Acct:[id number] Age/Sex: 84 / FADM Date: 11/16/24 Loc: HO.HMGCX Attending Dr: Mabel Black MD Ordering Physician: Mabel Black Date of Service: 11/16/24 Procedure(s): US pelvic and transvaginal Accession Number(s): [id number] cc: Mabel Black EXAMINATION: US PELVIS TRANSABDOMINAL [...] by: Carrillo Latif MD 11/16/2024 02:47 PM [facility] Dictated By: Carrillo Latif MD Signed By: <Electronically signed by Carrillo Latif MD in OV> 11/16/24 1447 DD/ 1410 TD/TT: 11/16/24 1434 Mixing Pan Tender: Mabel Black MD IM US PROCEDURES Final Result documented in this encounter Visit Diagnoses Diagnosis Left ovarian cyst- Primary Other and unspecified ovarian cyst documented in this encounter Care Teams Tree Climber Relationship Specialty Start Date End Date Mabel Black MD [address] [place] [phone] PCP - General Family Medicine 10/02/24 documented as of this encounter
--- OUTSIDE RECORDS SUMMARY | 2025-01-02 13:06 | XMS_ITS | Clinical Summary ---
Author Organization [address] [facility] Address 175 [place] [address] Phone Care Team Providers Care Analyst Sales Name Role Phone Mabel Black MD Primary Care Provider [phone] Social History Tobacco Use Types Packs/Day Years Used Date Smoking Tobacco: Never Assessed Comments Unknown Sex and Gender Information Value Date Recorded Sex Assigned at Not on file Legal Sex Female 1:45 PM EST Gender Identity Not on file Sexual Orientation Not on file Plan of Treatment Upcoming Encounters Date Type Department Care Team ([facility] Contact Info) Description 02/05/2025 2:00 PM EDT Consult Orthopedic Surgery - [place] [address] [address] Isiah Mann, DPM [address] [address] Health Maintenance Due Date Last Done Comments DTaP,Tdap,and Td Vaccines (1 - Tdap) 01/18/1959 Pneumococcal Vaccine: 50+ Ye ars (1 of 1 - PCV) 01/18/1990 Zoster Vaccines (1 of 2) 01/18/1990 RSV Immunization Patients 60 + Years Old (1 - 1-dose 75+ series) 01/18/2015 COVID-19 Vaccine ( - 2023-2 5 season) 2024 Influenza Vaccine (#1) 2024 Depression Screening 12/03/2024 Falls Risk Assessment 12/03/2024 Medicare Annual Wellness Visit 12/03/2024 Osteoporosis Screening (Bone Density Screening) 12/03/2024 Social Influencers of Health Screening 12/03/2024 HIB Vaccines Aged Out No longer eligi [...] on patient's age to complete this topic MMR Vaccines Aged Out No longer eligi ble based on patient's age to complete this topic Meningococcal ACWY Vaccine Aged Out N o longer eligible based on patient's age to complete this topic Meningococcal B Vacine Aged Out No lo nger eligible based on patient's age to complete this topic RSV Immunization Patients Un ele 20 months Aged Out No longer eligible b ased on patient's age to complete this topic Varicella Vaccines Aged Out No longer eligible based on patient's age to complete this topic Insurance MEDICARE MEDICAID - [place] Care Teams Analyst Sales Relationship Specialty Start Date End Date Mabel Black MD [address] [place] [phone] PCP - General Legal Services Professional 12/03/24
--- OUTSIDE RECORDS SUMMARY | 2025-01-02 13:06 | XMS_ITS | Encounter Summary ---
Author Organization [employer] Address [address] [address] Care Team Providers Care Washing Machine Striper Name Role Phone Mabel Black MD Primary Care Provider [phone] Reason for Referral * Consultation (Routine) - Authorized Specialty Diagnoses / Procedures Referred By Isrrael t Referred To Contact Obstetrics and Gynecology Diagnoses Left ovarian cyst Mabel Black MD [address] [place] [address] Phone: tel: fax: [facility] [address] [place] [address] Phone: tel: fax: Referral ID Status Reason Start Date Expiration Date Visits Requested Visits Authorized [id number] Authorized Specialty Services Required 12/07/2024 12/07/2025 1 1 Encounter Details Date Type Department Care Team (Late st Contact Info) Description 12/07/2024 Orders Only [facility] [address] [place], [place] [phone] Mabel Black MD [address] [place], [place] [phone] Left ovarian cyst (Primary Dx) Social History [...] Description 03/20/2025 3:45 PM EDT Office Visit [facility] [address] [place] [address] Mabel Black MD [address] [place] [address] Scheduled Referrals Name Type Priority Associated Diagnoses Order Schedule Referral to Obstetrics / Gynecology Outpatient Referral Routine Left ovarian cyst Expected: 12/07/2024 (Approximate), Expires: 12/07/2025 documented as of this encounter Visit Diagnoses Diagnosis Left ovarian cyst- Primary Other and unspecified ovarian cyst documented in this encounter Care Teams Washing Machine Striper Relationship Specialty Start Date End Date Mabel Black MD [address] [place] [address] PCP - General Family Medicine 10/02/24 documented as of this encounter
== END 2025-01-02 11:47 | disposition home or self-care (01) ==
LOC: HO.HCS 10:57
PROVIDERS: PCP General Practice; Visit Provider Internal Medicine
DX: Z86.79 Personal history of other diseases of the circulatory system (principal); I10 Essential (primary) hypertension; M79.89 Other specified soft tissue disorders
CPT/HCPCS: 93010; 99203

== ENCOUNTER → 2025-01-02 10:56 | Outpatient (BNVA) | payer MEDICARE, MEDICAID, SELFPAY | PROVIDERS: PCP General Practice; Visit Provider Internal Medicine | DX: I10 Essential (primary) hypertension (principal); M79.89 Other specified soft tissue disorders; Z86.79 Personal history of other diseases of the circulatory system | CPT/HCPCS: 93005; 99202 ==

== ENCOUNTER → 2025-01-11 08:04 | Outpatient (REF) | payer MEDICARE, MEDICAID, SELFPAY ==
--- NOTE | 2025-01-11 08:08 | CA_ITS ---
Transthoracic Echocardiogram Patient (Last, First, Middle): Elinor Reynoso N Gender: Female Date of : 1940 Age: 84 Procedure Date: 01/11/2025 Procedure Type: Transthoracic Echocardiogram Location: OP Height: 144.78 cm Weight: 51.71 kg BSA: 1.42 m2 Heart Rate: 66 bpm BP: 95 / 55 mmHg Business Development Manager: MARCELL Referring MD: Ambrosio Sánchez MD Symptoms: Z86.79 - Personal history of other diseases of the circulatory system Study Quality: Adequate ECG Rhythm: Sinus Conclusions: - The left ventricular systolic function is normal. The visually estimated ejection fraction is between 55-60%. - The apical septum and mid inferoseptal segments are hypokinetic. - There is mild calcification of the aortic valve. - There is mild mitral annular calcification. Findings Left Ventricle Normal left ventricular cavity size. There is normal left ventricular wall thickness. The left ventricular systolic function is normal. The visually estimated ejection fraction is between 55-60%. There is no evidence of regional wall motion abnormalities. Diastolic function is normal for age. Focal hypertrophy of the basal septum. Possible septal hypokinesis. Wall Motion Rest Echo Findings The apical septum and mid inferoseptal segments are hypokinetic. Right Ventricle Normal right ventricular cavity size and systolic function. Atria Both atria are normal in size. Aortic Valve There is a normal trileaflet aortic valve. There is mild calcification of the aortic valve. There is no aortic valve stenosis. There is trace (trivial) aortic valve regurgitation. Mitral Valve There is mild mitral annular calcification. There is trace mitral valve regurgitation. There is no mitral valve stenosis. Pulmonic Valve The pulmonic valve is likely normal. Tricuspid Valve There is mild tricuspid valve regurgitation. There is no evidence of pulmonary hypertension. Great Vessels The asc aorta is normal in size. Venous The inferior vena cava is normal in size and collapses greater than 50% with inspiration. Pericardium/Pleural There is no evidence of pericardial effusion. Prior Study Comparison No prior study available for comparison. Measurements 2D Linear Measurements IVSd: 0.78 0.6-0.9/0.6-1.0 cm LVIDd: 4.11 3.9-5.3/4.2-5.9 cm LVIDd Index: 2.89 2.4-3.2/2.2-3.1 cm/m2 LVIDs: 2.59 2.0-3.6 cm LVPWd: 0.78 0.7-1.1 cm LA Diam: 3.10 2.7-3.8/3.0-4.0 cm LAIDs Index: 2.18 1.5-2.3 cm/m2 LV Mass: 117.57 67-162/88-224 g LV Mass Index: 82.80 43-95/49-115 g/m2 LVOT Diam: 1.70 3.0+(-)1.3 cm 2D Systolic Function EF 4C: 61.40 >55% EF 2C: 67.70 >55% EF BiP: 63.70 >55% Mitral Valve MV Pk E: 0.84 MV PK A: 1.26 MV Decel Time: 225.00 E/A: 0.70 E'Lateral: 6.96 E'Medial: 5.77 E/E' Med: 14.50 E/E' Lat: 12.00 PHT: 66.00 MVA PHT: 3.33 Decel Alpine: 3.71 Aortic Valve AoV Pk Yonis: 1.37 AoV Mn Yonis: 1.03 AoV VTI: 0.37 AoV Pk Grad: 8.00 Aov Mn Grad: 5.00 BROOKS Cont.VTI: 1.66 LVOT LVOT Pk Yonis: 1.07 LVOT Mn Yonis: 0.72 LVOT VTI: 0.27 LVOT Pk Grad: 5.00 LVOT Mn Grad: 2.00 LVOT Diam: 1.70 LVOT Area: 2.27 Diastolic Function MV Pk E: 0.84 MV Pk A: 1.26 E/A: 0.70 E'Medial: 5.77 E/E' Med: 14.50 E' Laterial: 6.96 E/E' Lat: 12.00 Right Ventricle TAPSE (mm): 24.60 TVS' Yonis: 12.30 Tricuspid Valve TR Pk Yonis: 2.31 TR Pk Grad: 21.00 RA Press: 3.00 RVSP: 24.00 Great Vessels Aorta Sinus of Valsalva: 2.80 2.0-3.5 cm Ao Asc: 2.70 2.1-3.4 cm Pulmonary Valve PV Pk Yonis: 0.90 Peak PV Grad: 3.00 Updated in Other Vendor System with Status of Final Ambrosio Sánchez MD electronically signed on 01/12/2025 12:12:31 PM with status of Final
--- OUTSIDE RECORDS SUMMARY | 2025-01-11 08:16 | XMS_ITS | Clinical Summary ---
Author Organization 175 [facility] Address 175 [place] [address] Phone Care Team Providers Care Head Chopper Name Role Phone Mabel Black MD Primary Care Provider [phone] Social History Tobacco Use Types Packs/Day Years Used Date Smoking Tobacco: Never Assessed Comments Unknown Sex and Gender Information Value Date Recorded Sex Assigned at Not on file Legal Sex Female 1:45 PM EST Gender Identity Not on file Sexual Orientation Not on file Plan of Treatment Upcoming Encounters Date Type Department Care Team ([facility] Contact Info) Description 02/05/2025 2:00 PM EDT Consult Orthopedic Surgery - [place] [address] [address] [address] Isiah Mann, DPM [address] [address] Health Maintenance Due Date Last Done Comments DTaP,Tdap,and Td Vaccines (1 - Tdap) 01/18/1959 Pneumococcal Vaccine: 50+ Ye ars (1 of 1 - PCV) 01/18/1990 Zoster Vaccines (1 of 2) 01/18/1990 RSV Immunization Adult Patie nts (1 - 1-dose 75+ series) 01/18/2015 COVID-19 [...] Insurance MEDICARE MEDICAID - [place] Care Teams Head Chopper Relationship Specialty Start Date End Date Mabel Black MD [address] [place] [address] PCP - General Senior Management Consultant 12/03/24
--- OUTSIDE RECORDS SUMMARY | 2025-01-11 08:16 | XMS_ITS | Clinical Summary ---
Author Organization [employer] Address 75 [facility] 7t [place] [address] Care Team Providers Care Chief I Dispatcher Name Role Phone Mabel Black MD Primary Care Provider [phone] Allergies Active Allergy Reactions Criticality Noted Date [...] Active Blood Pressure Monitoring (Blood Pressure Cuff) [facility] 1 each Once per day. 1 each [...] at goal today, BP cuff ordered to [facility], to check daily ad f/u with [...] Type Department Care Team Description 12/07/[address] [address] Mabel Black MD Med Refill 12/07/2024 Orders Only [address] [address] Mabel Black MD Left ovarian cyst (Primary Dx) 12/05/[address] [address] Mabel Black MD Call Back Request 11/14/2024 3:15 PM EST Office Visit [address] [address] Mabel Black MD Primary hypertension (Primary Dx); [...] Imbalance; Dystrophic nail 11/14/2024 Travel 11/08/[address] [address] Swati Armenta [place] Referral 11/07/2024 Orders Only [address] [address] Mabel Black MD Left ovarian cyst (Primary Dx) 10/15/[address] [address] Mabel Black MD from Last 3 Months Immunizations Name Administration [...] Description 03/20/2025 3:45 PM EDT Office Visit [facility] MEDICINE [address] [place] [address] Mabel Black MD [address] [place], [place] [phone] Health Maintenance Due Date Last Done Comments [...] Routine 10/25/2024 10:06 AM EST Imbalance POCT GLYCATED HEMOGLOBIN, TOTAL Routine 10/12/2024 1:33 PM EST Imbalance Other assisted (current) drug therapy from Last 3 Months or Most Recently Relevant to Health Maintenance Results * US Pelvis Transvaginal (11/16/2024 2:10 PM EST) Anatomical Region Laterality Modality Pelvis Ultrasound 11/16/2024 2:10 PM EST Narrative 11/16/2024 2:50 PM EST ? [facility] Adult Primary Care ?[address] ? [place] [address] ? Ultrasound Report ? Signed ? Patient: Elinor Reynoso ?MR#: [id number] ?? 9 ? : 1940 ?Acct:[id number] ? Age/Sex: 84 / F ?ADM Date: 11/16/24 ? Loc: HO.HMGCX ? Attending Dr: Mabel Black MD ? Ordering Physician: Mabel Black ?? Date of Service: 11/16/24 ?? Procedure(s): US pelvic and transvaginal ?? Accession Number(s): [id number] ? cc: Mabel Black ? EXAMINATION: ??US [...] ??Carrillo Latif MD ??11/16/2024 02:47 PM EST ? Dictated By: ?Carrillo Latif MD ? Signed By: ?<Electronically signed by Carrillo Latif MD in OV> ?11/16/24 1447 ? DD/ 1410 ? TD/TT: 11/16/24 1434 ? Commercial Internship: ? Procedure Note Willa Lopez - 11/16/2024 [facility] Adult Primary Care [address] [place] [address] [place] [address] Ultrasound Report Signed Patient: Elinor Reynoso [facility]#: [id number] 9 : 1940Acct:[id number] Age/Sex: 84 / FADM Date: 11/16/24 Loc: HO.HMGCX Attending Dr: Mabel Black MD Ordering Physician: Mabel Black Date of Service: 11/16/24 Procedure(s): US pelvic and transvaginal Accession Number(s): [id number] cc: Mabel Black EXAMINATION: US PELVIS TRANSABDOMINAL [...] 11/16/24 1447 DD/ 1410 TD/TT: 11/16/24 1434 Commercial Internship: us Mabel Black MD IMG US PROCEDURES Final Result * ECG 12 lead (10/25/2024 10:06 AM EST) Only the most recent of2 resultswithin the time period is included. Elinor Brooks MD ECG ORDERABLES Final Result * POCT A1C (10/12/2024 1:33 PM EST) Hemoglobin A1C 5.8 4.0 - 6.0 % Swab 10/12/2024 1:33 PM EST us Elinor Brooks MD POINT OF CARE TEST EN TER/EDIT ORDERABLES Final Result from Last 3 Months or Most Recently Relevant to Health [place] [id number] [facility] STANDARD MEDICARE Care Teams Chief I Dispatcher Relationship Specialty Start Date End Date Mabel Black MD [address] [place] [address] [place] [address] PCP - General Family Medicine 10/02/24
--- OUTSIDE RECORDS SUMMARY | 2025-01-11 08:16 | XMS_ITS | Encounter Summary ---
Author Organization [facility] Address [address] [facility] 7t [place] [address] Care Team Providers Care Corporate Events Director Name Role Phone Mabel Black MD Primary Care Provider [phone] Reason for Referral * Imaging (Routine) - Closed Specialty Diagnoses / Procedures Referred By Isrrael rodas Referred To Contact Radiology Diagnoses Left ovarian cyst Procedures US Pelvis Transvaginal Mabel Black MD [address] [place] [address] Phone: tel: fax: [address] Phone: tel: fax: Referral ID Status Reason Start Date Expiration Date Visits Re quested Visits Authorized [id number] Closed 11/07/2024 11/07/2025 1 1 * Imaging (Routine) - Closed Specialty Diagnoses / Procedures Referred By Isrrael rodas Referred To Contact Radiology Diagnoses Left ovarian cyst Procedures Us Pelvis complete Mabel Black MD [address] [place] [address] Phone: tel: fax: [address] Phone: tel: fax: Referral ID Status Reason Start Date Expiration Date Visits Re quested Visits Authorized [id number] Closed 11/07/2024 11/07/2025 1 1 Encounter Details Date Type Department Care Team (Late st Contact Info) Description 11/07/2024 Orders Only [facility] MEDICINE [address] [place] [address] Mabel Black MD [address] [place] [address] Left ovarian cyst (Primary Dx) Social History [...] Upcoming Encounters Date Type Department Care Team ([facility] Contact Info) Description 03/20/2025 3:45 PM EDT Office Visit [facility] MEDICINE [address] [place] [address] Mabel Black MD 230 [place] [address] Scheduled Orders Name Type Priority Associated Diagnoses [...] [facility] Adult Primary Care ?[address] ? [place] [address] ? Ultrasound Report ? Signed ? Patient: Elinor Reynoso ?MR#: [id number] ?? 9 ? : 1940 ?Acct:[id number] ? Age/Sex: 84 / F ?ADM Date: 11/16/24 ? Loc: HO.HMGCX ? Attending Dr: Mabel Black MD ? Ordering Physician: Mabel Black ?? Date of Service: 11/16/24 ?? Procedure(s): US pelvic and transvaginal ?? Accession Number(s): [id number] ? cc: Mabel Black ? EXAMINATION: ??US [...] DD/ 1410 ? TD/TT: 11/16/24 1434 ? Sander Setter: ? Procedure Note Donjaspal, Image - 11/16/2024 [facility] Adult Primary Care [address] [place] [address] [place] [address] Ultrasound Report Signed Patient: Elinor Reynoso [facility]#: [id number] 9 : 1940Acct:[id number] Age/Sex: 84 / FADM Date: 11/16/24 Loc: HO.HMGCX Attending Dr: Mabel Black MD Ordering Physician: Mabel Black Date of Service: 11/16/24 Procedure(s): US pelvic and transvaginal Accession Number(s): [id number] cc: Mabel Black EXAMINATION: US PELVIS TRANSABDOMINAL [...] by: Carrillo Latif MD 11/16/2024 02:47 PM [facility] Dictated By: Carrillo Latif MD Signed By: <Electronically signed by Carrillo Latif MD in OV> 11/16/24 1447 DD/ 1410 TD/TT: 11/16/24 1434 Sander Setter: Mabel Black MD IM US PROCEDURES Final Result documented in this encounter Visit Diagnoses Diagnosis Left ovarian cyst- Primary Other and unspecified ovarian cyst documented in this encounter Care Teams Corporate Events Director Relationship Specialty Start Date End Date Mabel Black MD [address] [place] [address] PCP - General Family Medicine 10/02/24 documented as of this encounter
--- OUTSIDE RECORDS SUMMARY | 2025-01-11 08:16 | XMS_ITS | Encounter Summary ---
Author Organization [employer] Address [address] [address] Care Team Providers Care Machine Operator Packaging Name Role Phone Mabel Black MD Primary Care Provider [phone] Reason for Referral * Consultation (Routine) - Authorized Specialty Diagnoses / Procedures Referred By Isrrael t Referred To Contact Obstetrics and Gynecology Diagnoses Left ovarian cyst Mabel Black MD [address] [place] [address] Phone: tel: fax: [facility] [address] [place] [address] Phone: tel: fax: Referral ID Status Reason Start Date Expiration Date Visits Requested Visits Authorized [id number] Authorized Specialty Services Required 12/07/2024 12/07/2025 1 1 Encounter Details Date Type Department Care Team (Late st Contact Info) Description 12/07/2024 Orders Only [facility] MEDICINE [address] [place], [place] [phone] Mabel Black MD [address] [place], [place] [phone] Left ovarian cyst (Primary Dx) Social History [...] Description 03/20/2025 3:45 PM EDT Office Visit [facility] MEDICINE [address] [place] [address] Mabel Black MD [address] [place] [address] Scheduled Referrals Name Type Priority Associated Diagnoses Order Schedule Referral to Obstetrics / Gynecology Outpatient Referral Routine Left ovarian cyst Expected: 12/07/2024 (Approximate), Expires: 12/07/2025 documented as of this encounter Visit Diagnoses Diagnosis Left ovarian cyst- Primary Other and unspecified ovarian cyst documented in this encounter Care Teams Machine Operator Packaging Relationship Specialty Start Date End Date Mabel Black MD [address] [place] [address] PCP - General Family Medicine 10/02/24 documented as of this encounter
== END ==
LOC: HO.CARD 08:04
PROVIDERS: PCP General Practice; Visit Provider Internal Medicine
DX: R60.0 Localized edema (principal); Z86.79 Personal history of other diseases of the circulatory system
CPT/HCPCS: 93306

== ENCOUNTER → 2025-01-11 08:08 | Outpatient (BNV) | payer MEDICARE, MEDICAID, SELFPAY | PROVIDERS: PCP General Practice; Visit Provider Internal Medicine | DX: I35.1 Nonrheumatic aortic (valve) insufficiency (principal); I34.81 Nonrheumatic mitral (valve) annulus calcification | CPT/HCPCS: 93306 ==

== ENCOUNTER 2025-01-15 12:45 | Outpatient (REF) | payer MEDICARE, MEDICAID, SELFPAY ==
--- NOTE | 2025-01-15 13:52 | MHC.AU.HA2 ---
Hearing Instrument Fitting- Adult- Binaural Date of Visit: 01/15/25 Hearing Instruments Dispensed: Right Ear: Make, Model, Color, Serial Number: Rj Quesadao I50-R SN: [id number] Color: Silver [address] Flusher Driver Repair Warranty: 11/29/2027 Street Flusher Driver Loss and Damage Warranty: 11/29/2027 [facility] Service Plan: 11/29/2025 Battery Size: Rechargeable Copyholder/Slim Tube: 1P Earmold/Dome/CShell/SlimTip: C-Shell SN: [id number] Zachery: 04/12/2025 Type of Wax Guard: Cerustop Left Ear: Make, Model, Color, Serial Number: Rj Quesadao I50-R SN: [id number] Color: Silver [address] Flusher Driver Repair Warranty: 11/29/2027 Street Flusher Driver Loss and Damage Warranty: 11/29/2027 [facility] Service Plan: 11/29/2025 Battery Size: Rechargeable Copyholder/Slim Tube: 1P Earmold/Dome/CShell/SlimTip: C-Shell S#[id number] Warranty 04/12/2025 Type of Wax Guard: Cerustop Summary of Fitting: Accompanied by son, Lloyd (Alvarez). Had left HAWK on right ear and right HAWK on left ear. Reviewed color indicators. Fit new c-shells. Reran feedback fixed income manager with noted improvement in feedback curve. Could not perform real ear measures due to technical difficulties. Noted improvement in both comfort and sound quality. Practiced insertion/removal. Data logging showed ~13 hours of use/day. Reported vertigo, previously received PT; however, PT reportedly caused other muscle/bone aches due to the movements. Recommended discussing with PCP. Paired HAs to cellphone but not Phonak clemente at this time. Recommendations: Patient does not feel follow-up is necessary at this time. Return as needed. Diagnosis Code(s): Primary Diagnosis: H90.3 Bilateral Sensorineural Hearing Loss Signature: Provider: Khloe Martines, [facility]
--- OUTSIDE RECORDS SUMMARY | 2025-01-15 15:20 | XMS_ITS | Encounter Summary ---
Author Organization [employer] Address [address] [address] Care Team Providers Care Refractory Bricklayer Name Role Phone Mabel Black MD Primary Care Provider [phone] Reason for Referral * Consultation (Routine) - Authorized Specialty Diagnoses / Procedures Referred By Isrrael t Referred To Contact Obstetrics and Gynecology Diagnoses Left ovarian cyst Mabel Black MD [address] [place] [address] Phone: tel: fax: [facility] [address] [place] [address] Phone: tel: fax: Referral ID Status Reason Start Date Expiration Date Visits Requested Visits Authorized [id number] Authorized Specialty Services Required 12/07/2024 12/07/2025 1 1 Encounter Details Date Type Department Care Team (Late st Contact Info) Description 12/07/2024 Orders Only [facility] MEDICINE [address] [place], [place] [phone] Mabel Black MD [address] [place], [place] [phone] Left ovarian cyst (Primary Dx) Social History [...] Description 03/20/2025 3:45 PM EDT Office Visit [facility] MEDICINE [address] [place] [address] Mabel Black MD [address] [place] [address] Scheduled Referrals Name Type Priority Associated Diagnoses Order Schedule Referral to Obstetrics / Gynecology Outpatient Referral Routine Left ovarian cyst Expected: 12/07/2024 (Approximate), Expires: 12/07/2025 documented as of this encounter Visit Diagnoses Diagnosis Left ovarian cyst- Primary Other and unspecified ovarian cyst documented in this encounter Care Teams Refractory Bricklayer Relationship Specialty Start Date End Date Mabel Black MD [address] [place] [address] PCP - General Family Medicine 10/02/24 documented as of this encounter
--- OUTSIDE RECORDS SUMMARY | 2025-01-15 15:20 | XMS_ITS | Clinical Summary ---
Author Organization [employer] Address [address] [facility] 7t [place] [address] Care Team Providers Care Travel Professional Name Role Phone Mabel Black MD Primary Care Provider [phone] Allergies Active Allergy Reactions Criticality Noted Date [...] Active Blood Pressure Monitoring (Blood Pressure Cuff) [facility] 1 each Once per day. 1 each [...] at goal today, BP cuff ordered to [facility], to check daily ad f/u with [...] Type Department Care Team Description 12/07/[address] [address] Mabel Black MD Med Refill 12/07/2024 Orders Only [address] [address] Mabel Black MD Left ovarian cyst (Primary Dx) 12/05/[address] [address] Mabel Black MD Call Back Request 11/14/2024 3:15 PM EST Office Visit [address] [address] Mabel Black MD Primary hypertension (Primary Dx); [...] Imbalance; Dystrophic nail 11/14/2024 Travel 11/08/[address] [address] Swati Arment[place] Referral 11/07/2024 Orders Only [address] [address] Mabel Black MD Left ovarian cyst (Primary Dx) from Last 3 Months Immunizations Name Administration [...] Description 03/20/2025 3:45 PM EDT Office Visit [facility] MEDICINE [address] [place], [place] [phone] Mabel Black MD [address] [place], [place] [phone] Health Maintenance Due Date Last Done Comments [...] Routine 10/12/2024 1:33 PM EST Imbalance Other penitentiary (current) drug therapy from Last 3 Months or Most Recently Relevant to Health Maintenance Results * US Pelvis Transvaginal (11/16/2024 2:10 PM EST) Anatomical Region Laterality Modality Pelvis Ultrasound 11/16/2024 2:10 PM EST Narrative 11/16/2024 2:50 PM EST ? [facility] [place] [facility] ?[address] ? [place] [address] ? Ultrasound Report ? Signed ? Patient: Elinor Reynoso ?MR#: [id number] ?? 9 ? : 1940 ?Acct:[id number] ? Age/Sex: 84 / F ?ADM Date: 11/16/24 ? Loc: HO.HMGCX ? Attending Dr: Mabel lBack MD ? Ordering Physician: Mabel Black ?? Date of Service: 11/16/24 ?? Procedure(s): US pelvic and transvaginal ?? Accession Number(s): [id number] ? cc: Mabel Black ? EXAMINATION: ??US [...] DD/ 1410 ? TD/TT: 11/16/24 1434 ? Webfocus Developer: ? Procedure Note Jessica, Image - 11/16/2024 [facility] [address] [place] [address] [place] [address] Ultrasound Report Signed Patient: Elinor Reynoso#: [id number] 9 : 1940Acct:[id number] Age/Sex: 84 / FADM Date: 11/16/24 Loc: .HMGCX Attending Dr: Mabel Black MD Ordering Physician: Mabel Black Date of Service: 11/16/24 Procedure(s): US pelvic and transvaginal Accession Number(s): [id number] cc: Mabel Black EXAMINATION: US PELVIS TRANSABDOMINAL [...] 11/16/24 1447 DD/ 1410 TD/TT: 11/16/24 1434 Webfocus Developer: us Mabel Black MD IMG US PROCEDURES [...] Most Recently Relevant to Health Maintenance Insurance [facility] STANDARD MEDICARE Care Teams Travel Professional Relationship Specialty Start Date End Date Mabel Black MD [address] [place] [address] [place] [address] PCP - General Family Medicine 10/02/24
--- OUTSIDE RECORDS SUMMARY | 2025-01-15 15:20 | XMS_ITS | Clinical Summary ---
Author Organization 175 [facility] Address [address] [place] [address] Phone Care Team Providers Care Promotions Producer Name Role Phone Mabel Black MD Primary Care Provider [phone] Social History Tobacco Use Types Packs/Day Years Used Date Smoking Tobacco: Never Assessed Comments Unknown Sex and Gender Information Value Date Recorded Sex Assigned at Not on file Legal Sex Female 1:45 PM EST Gender Identity Not on file Sexual Orientation Not on file Plan of Treatment Upcoming Encounters Date Type Department Care Team ([facility] Contact Info) Description 02/05/2025 2:00 PM EDT Consult Orthopedic Surgery - [place] [address] [phone] Isiah Mann, DPM [address] [address] Health Maintenance Due Date Last Done Comments [...] age to complete this topic Meningococcal B Vaccine Aged Out No l onger eligible based on patient's age to complete this topic RSV Immunization Patients Un ele 20 months Aged Out No longer eligible b ased on patient's age to complete this topic Varicella Vaccines Aged Out No longer eligible based on patient's age to complete this topic Insurance MEDICARE MEDICAID - [place] Care Teams Promotions Producer Relationship Specialty Start Date End Date Mabel Black MD [address] [place] [address] PCP - General Gas Appliance Installer 12/03/24
--- OUTSIDE RECORDS SUMMARY | 2025-01-15 15:20 | XMS_ITS | Encounter Summary ---
Author Organization [facility] Address [address] [facility] 7t [place] [address] Care Team Providers Care Thread Pulling Machine Attendant Name Role Phone Mabel Black MD Primary Care Provider [phone] Reason for Referral * Imaging (Routine) - Closed Specialty Diagnoses / Procedures Referred By Isrrael rodas Referred To Contact Radiology Diagnoses Left ovarian cyst Procedures US Pelvis Transvaginal Mabel Black MD [address] [place] [address] Phone: tel: fax: [address] Phone: tel: fax: Referral ID Status Reason Start Date Expiration Date Visits Re quested Visits Authorized [id number] Closed 11/07/2024 11/07/2025 1 1 * Imaging (Routine) - Closed Specialty Diagnoses / Procedures Referred By Isrrael rodas Referred To Contact Radiology Diagnoses Left ovarian cyst Procedures Us Pelvis complete Mabel Black MD [address] [place] [address] Phone: tel: fax: [address] Phone: tel: fax: Referral ID Status Reason Start Date Expiration Date Visits Re quested Visits Authorized [id number] Closed 11/07/2024 11/07/2025 1 1 Encounter Details Date Type Department Care Team (Late st Contact Info) Description 11/07/2024 Orders Only [facility] MEDICINE [address] [place] [address] Mabel Black MD [address] [place] [address] Left ovarian cyst (Primary Dx) Social History [...] Upcoming Encounters Date Type Department Care Team ([facility] Contact Info) Description 03/20/2025 3:45 PM EDT Office Visit [facility] MEDICINE [address] [place] [address] Mabel Black MD [address] [place] [address] Scheduled Orders Name Type Priority Associated Diagnoses [...] EST ? [facility] Adult Primary Care ?[address] ? [place] [address] ? Ultrasound Report ? Signed ? Patient: Elinor Reynoso ?MR#: [id number] ?? 9 ? : 1940 ?Acct:[id number] ? Age/Sex: 84 / F ?ADM Date: 11/16/24 ? Loc: HO.HMGCX ? Attending Dr: Mabel Black MD ? Ordering Physician: Mabel Black ?? Date of Service: 11/16/24 ?? Procedure(s): US pelvic and transvaginal ?? Accession Number(s): [id number] ? cc: Mabel Black ? EXAMINATION: ??US [...] DD/ 1410 ? TD/TT: 11/16/24 1434 ? Homeopathic Doctor: ? Procedure Note Donjaspal, Image - 11/16/2024 [facility] [place] Primary [facility] [address] [place] [address] [place] [address] Ultrasound Report Signed Patient: Elinor Reynoso [facility]#: [id number] 9 : 1940Acct:[id number] Age/Sex: 84 / FADM Date: 11/16/24 Loc: HO.HMGCX Attending Dr: Mabel Black MD Ordering Physician: Mabel Black Date of Service: 11/16/24 Procedure(s): US pelvic and transvaginal Accession Number(s): [id number] cc: Mabel Black EXAMINATION: US PELVIS TRANSABDOMINAL [...] by: Carrillo Latif MD 11/16/2024 02:47 PM [facility] Dictated By: Carrillo Latif MD Signed By: <Electronically signed by Carrillo Latif MD in OV> 11/16/24 1447 DD/ 1410 TD/TT: 11/16/24 1434 Homeopathic Doctor: Mabel Black MD IM US PROCEDURES Final Result documented in this encounter Visit Diagnoses Diagnosis Left ovarian cyst- Primary Other and unspecified ovarian cyst documented in this encounter Care Teams Thread Pulling Machine Attendant Relationship Specialty Start Date End Date Mabel Black MD [address] [place] [address] PCP - General Family Medicine 10/02/24 documented as of this encounter
== END 2025-01-15 12:46 | disposition home or self-care (01) ==
LOC: HO.HAP 12:45
PROVIDERS: Visit Provider General Practice
DX: Z46.1 Encounter for fitting and adjustment of hearing aid (principal); H90.3 Sensorineural hearing loss, bilateral
CPT/HCPCS: V5264

== ENCOUNTER → 2025-03-20 07:58 | Outpatient (REF) | payer MEDICARE, MEDICAID, SELFPAY ==
--- NOTE | ~2025-03-20 | NM_ITS ---
Lexiscan Myocardial perfusion study Indication: Precordial chest pain to evaluate for myocardial ischemia Technique: The patient was brought in for a Lexiscan perfusion study on March 20, 2025 and was injected 0.4 mg of Lexiscan intravenously. Within a minute of this injection 25 mCi of sestamibi was given intravenously. Images were obtained using the SPECT gamma camera interlaced with the gating device. Images were obtained in supine position. Resting perfusion study was performed on March 21, 2025. Patient was administered 25 mCi of sestamibi intravenously at rest. Images were then obtained in supine position. Images of evident without CT attenuation. Total DLP 113 mGy-cm. Images were processed with the software and compared side to side in short axis, horizontal long axis and vertical long axis views. Findings: The stress perfusion study showed nonattenuated images show normal orientation all segments of the LV myocardium. Attenuated corrected images show mildly reduced uptake in the apex of the LV myocardium.. The gated study shows normal LV systolic function with calculated LVEF of 72%. LV cavity is normal in size. The gated study shows normal systolic wall thickening and contraction of segments. Resting study shows no change in perfusion pattern compared to stress perfusion study. Gating at rest reveals normal systolic wall motion with ejection fraction at 71%. The findings are consistent with normal myocardial perfusion. NM/NM cardiolite stress test Impression: 1. Myocardial perfusion imaging study shows normal myocardial perfusion 2. Gated LVEF is 72% 3. Transient ischemic dilatation not present Nondiagnostic changes on EKG. Electronically signed by: Ricardo Hooker MD 03/21/2025 01:01 PM EDT
--- NOTE | 2025-03-20 08:01 | CA_ITS ---
Acquisition Time: 2025-03-20 08:17:30 Total Exercise Time: 00:02:00 Test Indications: CARDIOMYOPATHY,Dyspnea Medications: AMLODIPINE ASA LEVOTHYROXINE ROSUVASTATIN VALSARTAN ALENDRONATE Protocol: LEXISCAN Max HR: 116 BPM 85% of Pred: 135 BPM Max BP: 128/60 mmHG Max Work Load: 1.0 METS Pharmacological stress test with Lexiscan while pt swings her legs in chair, with reports of SOB, fatigue, abdominal discomfort and nausea, with isolated PACs, with normotensive response to injection. Nondiagnostic EKG for ischemia. In recovery, pt treated with IVP Aminophylline 75 mg to reverse Lexiscan after which pt feeling back to baseline. Nuclear images pending. Test reviewed with Dr. Hooker. Referred By: Ambrosio Sánchez Electronically Signed By: Yusuf Garrett
--- OUTSIDE RECORDS SUMMARY | 2025-03-20 08:01 | XMS_ITS | Clinical Summary ---
Author Organization 175 [facility] Address [address] [place] [address] Phone Care Team Providers Care General Expeditor Name Role Phone Mabel Black MD Primary Care Provider [phone] Allergies Active Allergy Reactions Criticality Noted Date Comments Penicillins Unknown 10/04/2024 Medications acetaminophen (TYLENOL) 500 mg tablet TAKE 2 TABLETS (1,000 MG) BY MOUTH EVERY 8 (EIGHT) HOURS IF NEEDED FOR MILD PAIN FOR UP TO 10 DAYS. Active alendronate (FOSAMAX) 70 mg tablet PLEASE SEE ATTACHED FOR DETAILED DIRECTIONS 4 Active amLODIPine (NORVASC) 5 mg tablet TAKE 1 TABLET (5 MG) BY MOUTH ONCE PER DAY. 4 Active aspirin 81 mg chewable tablet CHEW 1 TABLET (81 MG) ONCE PER DAY. 4 Active blood pressure test kit-large kit USE TO CHECK BLOOD PRESSURE ONCE DAILY 5 Active meclizine (ANTIVERT) 25 mg tablet TAKE 1 TABLET BY MOUTH IF NEEDED IN THE MORNING AT NOON AND AT BEDTIME FOR DIZZINESS UP TO 10 DAYS Active levothyroxine (SYNTHROID, LEVOTHROID) 50 mcg tablet TAKE 1 TABLET (50 MCG) BY MOUTH BEFORE BREAKFAST 4 Active rosuvastatin (CRESTOR) 20 mg tablet TAKE 1 TABLET (20 MG) BY MOUTH ONCE PER DAY. 4 Active valsartan (DIOVAN) 320 mg tablet TAKE 1 TABLET (320 MG) BY MOUTH ONCE PER DAY. 4 Active ketoconazole (NIZORAL) 2 % cream Apply topically 1 (one) time each day. 30 g 2 5 Active Encounters Date Type Department Care Team Description 02/05/2025 2:00 PM EDT Consult Orthopedic Surgery [facility] [address] [phone] Isiah Mann DPM Peripheral venous insufficiency (Primary Dx); Nail dystrophy; Tinea pedis of both feet; Dermatophytosis of nail from Last 3 Months Social History Tobacco Use Types Packs/Day Years Used Date Smoking Tobacco: Never Assessed Comments Unknown Sex and Gender Information Value Date Recorded Sex Assigned at Not on file Legal Sex Female 1:45 PM EST Gender Identity Not on file Sexual Orientation Not on file Plan of Treatment Upcoming Encounters Date Type Department Care Team ([facility] st Contact Info) Description 04/15/2025 8:15 AM EDT Office Visit Orthopedic Surgery [place] [phone] [phone] Isiah Mann DPM [address] [address] Health Maintenance Due Date Last Done Comments COVID-19 Vaccine (#1) 01/18/1945 DTaP,Tdap,and Td Vaccines (1 - Tdap) 01/18/1959 Pneumococcal Vaccine: 50+ Years (1 of 2 - PCV) 01/18/1959 Zoster Vaccines (1 of 2) 01/18/1959 RSV Immunization Adult Patients (1 - 1-dose 75+ series) 01/18/2015 Cholesterol Screening (Lipid Panel) 12/03/2024 Depression Screening 12/03/2024 Falls Risk Assessment 12/03/2024 Medicare Annual Wellness Visit 12/03/2024 Osteoporosis Screening (Bone Density Screening) 12/03/2024 Social Influencers of Health Screening 12/03/2024 Hypertension/CHF/CAD Annual BMP Blood Test 02/06/2025 Influenza Vaccine Completed 08/17/2024, 07/29/2017 HIB Vaccines [...] to complete this topic RSV Immunization Patients Under 20 months Aged Out No longer eligible b ased on patient's age to complete this topic Varicella Vaccines Aged Out No longer eligible based on patient's age to complete this topic Insurance MEDICARE [place]ICAID - [place] Care Teams General Expeditor Relationship Specialty Start Date End Date Mabel Black MD [address] [place] [id number] PCP - General Rougher Operator 12/03/24
== END ==
LOC: HO.CARD 07:58
PROVIDERS: PCP General Practice; Visit Provider Internal Medicine
DX: R07.2 Precordial pain (principal); I20.9 Angina pectoris, unspecified; Z86.79 Personal history of other diseases of the circulatory system
CPT/HCPCS: 78452; 93017; A9500; J0280; J2785

== ENCOUNTER → 2025-03-20 08:01 | Outpatient (BNV) | payer MEDICARE, MEDICAID, SELFPAY | PROVIDERS: PCP General Practice | DX: R06.02 Shortness of breath (principal); I49.1 Atrial premature depolarization | CPT/HCPCS: 78452; 93016; 93018 ==

== ENCOUNTER 2025-03-21 09:02 | Outpatient (REF) | payer MEDICARE, MEDICAID, SELFPAY ==
--- OUTSIDE RECORDS SUMMARY | 2025-03-21 09:39 | XMS_ITS | Clinical Summary ---
Author Organization 175 [facility] Address [address] [place] [address] Phone Care Team Providers Care Classroom Aide Name Role Phone Mabel Black MD Primary Care Provider [phone] Allergies Active Allergy Reactions Criticality Noted Date [...] 02/05/2025 2:00 PM EDT Consult Orthopedic Surgery [facility] [address] [phone] Isiah Mann DPM Peripheral venous insufficiency (Primary [...] Upcoming Encounters Date Type Department Care Team ([facility] st Contact Info) Description 04/15/2025 8:15 AM EDT Office Visit Orthopedic Surgery [place] [phone] [phone] Isiah Mann DPM [address] [address] Health Maintenance Due Date Last Done Comments [...] Insurance MEDICARE [place] - [place] Care Teams Classroom Aide Relationship Specialty Start Date End Date Mabel Black MD [address] [place] [id number] 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
[2025-03-21 11:38] LABS: Cholesterol 171 mg/dL (<200); HDL Cholesterol 57 mg/dL (>40); LDL Cholesterol Calculated 84 mg/dL (<100); Triglycerides 151 mg/dL (<150)
[2025-03-21 11:57] LABS: TSH reflex Free T4 1.36 uIU/mL (0.32-4.0)
== END 2025-03-21 09:03 | disposition home or self-care (01) ==
LOC: HO.HHCL 09:02
PROVIDERS: Visit Provider General Practice
DX: E03.9 Hypothyroidism, unspecified (principal); E78.2 Mixed hyperlipidemia; I10 Essential (primary) hypertension
CPT/HCPCS: 36415; 80061; 84443

== ENCOUNTER 2025-04-02 14:34 | Outpatient (REF) | payer MEDICARE, MEDICAID, SELFPAY ==
[2025-04-02 17:17] LABS: Anion Gap 16 (12-20); Blood Urea Nitrogen 32 mg/dL (9-16); Calcium 9.3 mg/dL (8.4-10.2); Carbon Dioxide 23 mmol/L (22-29); Chloride 106 mmol/L (96-108); Estimated Glomerular Filt Rate 44; Glucose Random 83 mg/dL (60-115); Potassium 4.5 mmol/L (3.3-5.1); Sodium 140 mmol/L (135-145)
[2025-04-02 17:21] LABS: B Type Natriuretic Peptide 176 pg/mL (<100)
== END 2025-04-02 14:35 | disposition home or self-care (01) ==
LOC: HO.LAB 14:34
PROVIDERS: PCP General Practice
DX: M79.89 Other specified soft tissue disorders (principal); Z86.79 Personal history of other diseases of the circulatory system; I10 Essential (primary) hypertension
CPT/HCPCS: 36415; 80048; 83880; 99212

== ENCOUNTER 2025-04-02 14:34 | Outpatient (AMB) | payer MEDICARE, MEDICAID, SELFPAY ==
--- NOTE | 2025-04-02 14:37 | MHC.OFFVIS ---
Vital Signs 04/02/25 14:38 Height 4 ft 9 in Weight 115 lb BMI 24.9 BP 124/68 Blood Pressure Location Lt brachial Position Sitting Pulse 70 Pulse Source Pulse Oximeter Intake Visit Reasons: 3m follow up/echo Quality Control Analyst Required: Yes Quality Control Analyst Services: Quality Control Analyst Offered & Declined Accompanied by: Daughter Allergies Penicillins (PENICILLINS) Allergy (Unknown, Unverified 06/26/20 16:05) TONGUE SWELLING Sulfa (Sulfonamide Antibiotics) (SULFA (SULFONAMIDE ANTIBIOTICS)) Allergy (Unknown, Unverified 06/26/20 16:05) RASH/ITCHING Medication List - Last Reconciled 04/02/25 by Yusuf Garrett NP alendronate 70 mg PO QWEEK amlodipine 5 mg PO DAILY aspirin (Adult Low Dose Aspirin) 81 mg PO DAILY levothyroxine 50 mcg PO DAILY polyethylene glycol 3350 (Gavilax) 17 grams PO DAILY rosuvastatin 20 mg PO DAILY valsartan 320 mg PO DAILY vitamins A,C,L-svbc-mdtzim 4,296 mcg-226 mg-90 mg (PreserVision AREDS) 1 cap PO BID HPI Comments Details: This is an 85-year-old female patient coming in for a follow-up visit, accompanied by her daughter who served as the spanish medical interpreter throughout the visit. Patient with a history of hypertension, dyslipidemia, and congestive heart failure [place]. Today, patient reports that she has been having leg edema for the last couple of days. Patient states that she used to get them intermittently previously but now it is more so continuous. Patient is denying any exertional chest pain, shortness of breath, palpitations, dizziness, orthopnea, PND, presyncope, or syncope associated with this. Patient does report that she gets fatigued easily. Patient is reporting compliance with all her medications. [facility] Medical History (Updated 04/02/25 @ 16:40 by Yusuf Garrett NP) Lymphoma Dyslipidemia Hypothyroidism Hypertension Surgical History S/P lumpectomy, right breast H/O mastectomy Family History Mother HTN (hypertension) Social History Alcohol intake: former Patient Tobacco Use Status: Never used Tobacco Review of Systems Const Denies weakness ENT Denies dizziness Card Denies chest pain, Denies chest pain with activity, Denies syncope, Denies rapid heart rate, Denies pedal edema, Denies edema, Denies leg edema, Denies lightheadedness, Denies palpitations, Denies dyspnea, Denies dyspnea on exertion and Denies orthopnea Resp Denies cough, Denies dyspnea and Denies dyspnea on exertion GI Denies hematochezia and Denies change in stool character Musc Denies abnormal gait, Reports myalgias, Reports joint swelling, Denies muscle cramps, Denies muscle weakness, Denies numbness, Denies radiating pain into limb and Denies tingling Neuro Denies abnormal gait, Denies dizziness, Denies syncope, Denies numbness, Denies tingling and Denies weakness Endo Denies palpitations Physical Exam Vital Signs: Last Vital Signs Pulse 70 04/02/25 14:38 BP 124/68 04/02/25 14:38 BMI result Body Mass Index 24.9 Const General: cooperative, healthy appearing, comfortable and no acute distress Orientation/consciousness: patient oriented x3 HEENT Head: Yes normal to inspection Neck Neck: Yes normal visual inspection, Yes trachea midline and Yes supple Chest Chest palpation & inspection: normal inspection of the chest Resp Effort & Inspection: normal respiratory effort Auscultation: clear to auscultation bilaterally, no crackles, no rales, no rhonchi and no wheezes Cardio Jugular venous distension: no JVD Palpation: normal PMI Rate: regular rate Rhythm: regular rhythm Heart sounds: S1 normal heart sound present, S2 normal heart sound present, no click, no gallops, Murmur heart sound present systolic at the right sternal border and no rubs Peripheral pulses: Peripheral pulses 2+ throughout GI Inspection: Yes normal to inspection Palpation (GI): Soft to palpation Auscultation: normal bowel sounds Skin General skin exam: no rashes or lesions noted Neuro General: patient oriented x3 Extrem General: Yes normal to inspection, No calf tenderness and Yes edema (Bilateral 1+ pitting edema, right greater than left) Psych Appearance: grossly normal Mental Status: mental status grossly normal Speech and movement: Normal speech and movement present Assessment & Plan Assessment & Plan (1) History of cardiomyopathy: Code(s): Z86.79 - Personal history of other diseases of the circulatory system Category: Medical Plan: Patient notes a history of low heart function in the past. However, patient has echo report from 2022 in [place] showed an LVEF of 62% with mild diastolic function. 01/11/2025-echo study showed a normal LV systolic function with an ejection fraction between 55-60%, hypokinetic apical septum and mid inferior septal segments, mild calcification of the aortic valve and mitral valve. Given the above wall motion abnormality, patient underwent a myocardial perfusion study on 03/20/2025, which was normal. On exam today, pt with 1+ pitting edema to b/l lower legs R>L; will start pt on low dose lasix. We will also check BNP and BUN/Wad Impregnator. Discussed in detail the signs and symptoms for heart failure. Advised on low salt diet, daily weight monitoring and FR at 1.5 to 2L daily. Advised using compression socks and elevating legs during rest. (2) Primary hypertension: Code(s): I10 - Essential (primary) hypertension Category: Medical Plan: Blood pressure today is well-controlled. Continue current regimen. Advised monitoring blood pressures at home with a goal less than 130/80. Advised heart healthy diet, regular exercise, med compliance, and management of vascular risk factors. Follow-up in 1 month. In the interim, patient will call the office with any concerns or change in symptoms. This note was generated using voice recognition software. 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 Orders: Orders Basic Metabolic Panel Today M79.89 - Other specified soft tissue disorders B Type Natriuretic Peptide Today M79.89 - Other specified soft tissue disorders Coding Level of Care Code Est Pt Level 4 (06455) Complex EM visit Add On G2211 Diagnoses History of cardiomyopathy Z86.79 Primary hypertension I10 Time Spent (min) 34 Comment Time spent in reviewing the chart, test results, assessment, counseling and documentation.
[2025-04-02 14:38] VITALS: BP 124/68; PULSE 70; BMI 24.9
--- OUTSIDE RECORDS SUMMARY | 2025-04-02 17:46 | XMS_ITS | Clinical Summary ---
Author Organization 175 [facility] Address [address] [place] [address] Phone Care Team Providers Care Package Clerk Name Role Phone Mabel Black MD Primary Care Provider [phone] Allergies Active Allergy Reactions Criticality Noted Date [...] 02/05/2025 2:00 PM EDT Consult Orthopedic Surgery [facility] [address] [address] Isiah Mann DPM Peripheral venous insufficiency (Primary [...] Upcoming Encounters Date Type Department Care Team ([facility] st Contact Info) Description 04/15/2025 8:15 AM EDT Office Visit Orthopedic Surgery [place] [address] [phone] Isiah Mann DPM [address] [address] Health Maintenance Due Date Last Done Comments [...] Insurance MEDICARE [place] - [place] Care Teams Package Clerk Relationship Specialty Start Date End Date Mabel Black MD [address] [place] [id number] 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
== END 2025-04-02 15:08 | disposition home or self-care (01) ==
LOC: HO.HCS 14:34
PROVIDERS: PCP General Practice
DX: Z86.79 Personal history of other diseases of the circulatory system (principal); I10 Essential (primary) hypertension
CPT/HCPCS: 99214; G2211